=== PATIENT | female | born 1960 | race Caucasian/White ===

== ENCOUNTER 2020-04-08 12:48 | Emergency (ER) | payer MEDICARE, OTHER ==
[2020-04-08] MEDS ORDERED: ONDANSETRON 4 MG/2 ML VIAL IVP STA (13:28)
[2020-04-08] MEDS ORDERED: MORPHINE SULFATE 4 MG/ML SYRINGE IVP STA (13:28)
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
[2020-04-08 14:02] LABS: Basophils # (A) 0.1 k/uL (0-0.2); Basophils % (A) 1 %; Eosinophils # (A) 0.3 k/uL (0-0.7); Eosinophils % (A) 2 %; HGB 14.6 gm/dL (11.4-16.0); Lymphocytes # (A) 1.8 k/uL (1.0-4.8); Lymphocytes % (A) 18 %; MCH 32.1 pg (25.0-35.0); MCV 94.4 fL (80.0-100.0); Monocytes # (A) 0.7 k/uL (0-1.0); Monocytes % (A) 7 %; Neutrophils # (A) 7.5 k/uL (1.3-7.7); Neutrophils % (A) 71 %; Platelet Count 304 k/uL (150-450); RBC 4.56 m/uL (3.80-5.40); RDW 13.1 % (11.5-15.5); WBC 10.5 k/uL (3.8-10.6)
[2020-04-08] MEDS ORDERED: diphenhydrAMINE 50 MG/ML 1 ML VIAL IVP STA (14:04)
[2020-04-08] MEDS ORDERED: methylPREDNISolone SOD SUCCI 125 MG/2 ML VIAL IV STA (14:04)
[2020-04-08] MEDS ORDERED: FAMOTIDINE 20 MG/2 ML VIAL IV STA (14:04)
[2020-04-08 14:11] LABS: ALT 27 U/L (4-34); AST 28 U/L (14-36); African American GFR (CKD) >90 (>60 ml/min/1.73 sqM); Alkaline Phosphatase 117 U/L (38-126); Anion Gap 5 mmol/L; Blood Urea Nitrogen 19 mg/dL (7-17); Calcium 9.5 mg/dL (8.4-10.2); Carbon Dioxide 29 mmol/L (22-30); Chloride 107 mmol/L (98-107); Glucose 101 mg/dL (74-99); Lipase 416 U/L (23-300); Non-African American GFR(CKD) >90 (>60 ml/min/1.73 sqM); Potassium 4.3 mmol/L (3.5-5.1); Sodium 141 mmol/L (137-145); Total Bilirubin 0.4 mg/dL (0.2-1.3); Total Protein 6.9 g/dL (6.3-8.2)
[2020-04-08 14:21] LABS: Appearance,Urine Clear (Clear); Bilirubin,Urine Negative (Negative); Blood,Urine Negative (Negative); Color,Urine Light Yellow; Glucose,Urine (UA) Negative (Negative); Ketones,Urine Negative (Negative); Leukocyte Esterase,Urine Negative (Negative); Nitrite,Urine Negative (Negative); PH, Urine 6.5 (5.0-8.0); Protein,Urine Trace (Negative); Specific Gravity,Urine 1.009 (1.001-1.035); Urobilinogen,Urine <2.0 mg/dL (<2.0)
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
[2020-04-08 15:56] VITALS: BP 143/76; PULSE 62; RESP 62; TEMP 98.6
== END 2020-04-08 15:59 | disposition home or self-care (01) ==
LOC: EC 12:48
DX: Z04.1 Encounter for examination and observation following transport accident (principal); R07.9 Chest pain, unspecified; M79.641 Pain in right hand; I10 Essential (primary) hypertension; E78.5 Hyperlipidemia, unspecified; Z79.899 Other long term (current) drug therapy; Z87.891 Personal history of nicotine dependence; Z85.038 Personal history of other malignant neoplasm of large intestine
CPT/HCPCS: 36415; 93005; 80053; 83690; 84484; 85025; 81003; 73130; 71260; 74177; 99285; 96374; 96375 ×2; J1200; J2930; Q9967

== ENCOUNTER → 2020-08-04 | Outpatient (CLI) | payer MEDICARE ==
[2020-08-04 14:24] VITALS: BP 158/88; PULSE 75; RESP 18; TEMP 97.9; BMI 40.6
--- NOTE | 2020-08-04 14:52 | P.HPBAR ---
Bariatric H&P - History & Physicial H&P Date: 08/04/20 History & Physicial: Visit/CC: initial visit Patient initial contact: Initial weight: Initial weight in pounds: Height: 5 ft 2 in Initial BMI: Last weight: Current weight: 100.698 kg Current weight in pounds: 222.00 Current BMI: 40.6 [place] body weight (based on NIH guidelines): 49.895 kg Excess body weight loss: The patient is a 59 year-old F who presents for Bariatric Assessment. DATE OF SERVICE: 08/04/2020 REASON FOR CONSULTATION: Initial bariatric evaluation. HISTORY OF PRESENT ILLNESS: Quiana Samuels is a 59-year-old female who reports lifelong morbid obesity. She is looking into the sleeve gastrectomy. She comes in with prior abdominal surgery. She reports scar tissue from her colorectal cancer and had a complication of colon fistula. Her highest weight is 250 pounds. She had prior bariatric surgery in the past of adjustable gastric band. She had lost 87 pounds and weight down to 135 to 140 pounds with the band. Her adjustable gastric band was removed in 2019 after developing small bowel obstruction. Since removal of her gastric band, she comes in with moderate weight gain. She is looking weight loss. She has developed lower back pain. She had colon cancer. She reports spinal stenosis as a result of her morbid obesity. She denies personal of family history of esophageal cancer. She denies personal or family history of deep venous thrombosis. She denies easy bleeding. She has hip pain from osteoarthritis. She did have radiation to the pelvis for colon cancer. She had all surgeries in 2019 for colon surgery. She has mild gastroesophageal reflux disease. She has occasional ankle pain and she has neuropathy of the feet and hand. She denies active smoking. Her last smoking was 15+ years ago. She has family history of morbid obesity including her daughter had weight loss surgery. She reports urinary incontinence. She reports having her gallbladder. At height of 5 feet 2 inches, her ideal body weight is 135 pounds. She comes in 222 pounds, body mass index 40.6. Her highest weight is 250 pounds, BMI 45.8. She is 87 pounds overweight. PAST MEDICAL HISTORY: 1. Morbid obesity due to excess calories 2. Body mass index of 45.8, initial 3. Osteoarthritis of the hips. 4. History of colorectal cancer 5. Hypertensive heart disease 6. Hyperlipidemia 7. Neuropathy 8. Depressive disorder PAST SURGICAL HISTORY: 1. Colectomy with ileostomy and reversal 2. Adjustable gastric band with removal, 2018. 3. Tubal ligation 4. Tonsillectomy 5. Hysterectomy HOME MEDICATIONS: Home Medications Medication Instructions Recorded Confirmed Atenolol [Tenormin] 50 mg PO DAILY 04/08/20 09/13/20 Atorvastatin [Lipitor] 20 mg PO DAILY 04/08/20 09/13/20 Biotin 5 mg PO DAILY 04/08/20 09/13/20 Cholecalciferol [Vitamin D3 (25 1,000 unit PO DAILY 04/08/20 09/13/20 Mcg = 1000 Iu)] Diphenox-Atrop 2.5-0.025 mg 1 - 2 tab PO DAILY PRN 04/08/20 09/13/20 [Lomotil] Multivitamins, Thera [Multivitamin 1 tab PO DAILY 04/08/20 09/13/20 (formulary)] Zinc 50 mg PO DAILY 04/08/20 09/13/20 lisinopriL 40 mg PO DAILY 04/08/20 09/13/20 FLUoxetine HCL [PROzac] 10 mg PO DAILY 08/04/20 09/13/20 Previous Rx's Medication Instructions Recorded Omeprazole [PriLOSEC] 40 mg PO DAILY #14 cap 08/30/20 ALLERGIES: Allergies Allergy/AdvReac Type Severity Reaction Status Date / Time No Known Allergies Allergy Verified 09/13/20 12:56 SOCIAL HISTORY: Past tobacco use. FAMILY HISTORY: No family history of ulcerative colitis disease or Crohn's disease. Family history of morbid obesity. No lupus in the family. No reports of stomach or esophageal cancer. REVIEW OF ORGAN SYSTEMS: CONSTITUTIONAL: At height of 5 feet 2 inches, her ideal body weight is 135 pounds. Her highest weight is 250 pounds, BMI 45.8. She is 87 pounds overweight. HEENT: Denies any active troubles with vision or hearing. Denies troubles with swallowing. ENDOCRINE: Denies diabetes. No hypothyroidism. CARDIOVASCULAR: Denies past reports of palpitations or heart attacks or chest pain. Has hypertensive heart disease. RESPIRATORY: Denies daytime somnolence. Denies asthma. GASTROINTESTINAL: Multiple abdominal surgeries due to colorectal cancer as well as chemotherapy and radiation. Has gastroesophageal reflux disease. Chronic diarrhea with fatty food intolerance. GENITOURINARY: Has urinary incontinence. No recent blood in urine MUSCULOSKELETAL: Has lower back pain and joint pain. Has osteoarthritis of the hips. NEURO: No headaches. No seizure disorders. Has neuropathy. PSYCH: Has depression. No suicidal ideation. RHEUMATOLOGIC: No lupus. No rheumatoid arthritis. HEMATOLOGIC: Denies any abnormal bleeding or bruising. Denies history of DVTs. SKIN: No rash. No skin cancer. PHYSICAL EXAM: VITAL SIGNS: Height 5 foot 2 inches, weight 222 pounds. BMI 40.6 Vital Signs Temp 97.9 F 08/04/20 14:15 Pulse 75 08/04/20 14:15 Resp 18 08/04/20 14:15 BP 158/88 08/04/20 14:15 Pulse Ox GENERAL: Well-developed in no acute distress. HEENT: No scleral icterus. Extraocular movements grossly intact. Hears conversational speech. No nasal drainage. NECK: Supple without lymphadenopathy. CHEST: Nonlabored respirations with equal bilateral excursions. CARDIOVASCULAR: Regular rate and regular rhythm. Distal 2+ pulses. ABDOMEN: Obese, soft, nontender, nondistended. MUSCULOSKELETAL: No clubbing, cyanosis. NEURO: No focal or lateralizing signs. Cranial nerves 2 through 12 grossly within normal limits. PSYCH: Appropriate affect. Alert and oriented to person, place and time. SKIN: Good skin turgor. Well perfused. ASSESSMENT: 1. Morbid obesity due to excess calories 2. Body mass index of 45.8, initial 3. Osteoarthritis of the hips. 4. History of colorectal cancer 5. Hypertensive heart disease 6. Hyperlipidemia 7. Neuropathy 8. Depressive disorder 9. Family history morbid obesity 10. Chronic diarrhea PLAN: 1. Surgical options including a band, gastric bypass, sleeve gastrectomy were described in detail. Alternatives such as gastric balloon including duodenal switch were described. She is looking into the sleeve gastrectomy. 2. The [place] bariatric surgical collaborative data and outcomes calculator were described with surgical options. 3. Recommend a bariatric metabolic panel to evaluate for micro- including macronutrient deficiencies. 4. Recommend primary care provider for clearance. 5. Dietary surveillance and counseling was reviewed. Increased protein intake over 65 grams daily advised. 6. Will need cardiac risk assessment. 7. Recommend medical risk assessment. 8. Psych assessment per insurance guidelines. 9. Recommend upper endoscopy. 10. Recommend 12-lead EKG. 11. Recommend esophagram 12. Recommend urine nicotine testing for history of tobacco abuse disorder 13. Recommend urine drug screen 14. Recommend ultrasound of the gallbladder for chronic diarrhea and fatty food intolerance 15. Gastric bypass contraindicated with multiple abdominal surgeries including bowel obstruction for which surgery is high risk. Thank you for this consultation. Past Medical History Past Medical History: Cancer, Hyperlipidemia, Hypertension Additional Past Medical History / Comment(s): colorectal History of Any Multi-Drug Resistant Organisms: None Reported Past Surgical History: Bariatric Surgery, Bowel Resection, Hysterectomy, Tonsillectomy, Tubal Ligation Additional Past Surgical History / Comment(s): ileosotomy and revision. lap band 2004/2005. lap band removed 2018. Past Anesthesia/Blood Transfusion Reactions: No Reported Reaction Past Psychological History: No Psychological Hx Reported Smoking Status: Former smoker Past Alcohol Use History: Occasional Additional Past Alcohol Use History / Comment(s): smoked for 10 years 1.5 ppd. quit smoking 2005. Past Drug Use History: None Reported Surgical - Exam Vital Signs Temp Pulse Resp BP 97.9 F 75 18 158/88 08/04/20 14:15 08/04/20 14:15 08/04/20 14:15 08/04/20 14:15 Results - Labs 08/04/20 15:27 08/04/20 15:27 Bariatric Checklist Checklist: Plan: Checklist: EGD: 1. Hiatal hernia: 2. H. Pylori: HgbA1c: Vitamin D: Smoking: Primary care physician referral: Dr. Perez ([facility]) Psychiatry clearance: Cardiology clearance: Sleep study: Diet journal: VTE risk score: VTE risk level: Rehab needs at discharge:
[2020-08-04 16:17] LABS: HCT 41.1 % (34.0-46.0); HGB 14.1 gm/dL (11.4-16.0); MCH 32.9 pg (25.0-35.0); MCHC 34.4 g/dL (31.0-37.0); MCV 95.7 fL (80.0-100.0); Mean Platelet Volume 7.6; Platelet Count 322 k/uL (150-450); RBC 4.29 m/uL (3.80-5.40); RDW 13.8 % (11.5-15.5); WBC 9.1 k/uL (3.8-10.6)
[2020-08-05 03:44] LABS: Ferritin 64.1 ng/mL (10.0-291.0)
[2020-08-05 04:06] LABS: % Iron Saturation 29.21 (12.00-45.00); ALT 31 U/L (8-44); AST 28 U/L (13-35); African American GFR (CKD) 94.9 (60.0-200.0); Alkaline Phosphatase 120 U/L (41-126); Calcium 9.5 mg/dL (8.7-10.3); Carbon Dioxide 27.4 mmol/L (21.6-31.8); Chloride 107 mmol/L (96-109); Cholesterol 160 mg/dL (0-200); Globulin 2.2 g/dL (1.6-3.3); Glucose 74 mg/dL (70-110); Iron 78 ug/dL (50-170); LDL Cholesterol,Calculated 92.8 mg/dL (0.0-131.0); Non-African American GFR(CKD) 81.8 (60.0-200.0); Phosphorus 3.5 mg/dL (2.4-5.1); Potassium 4.4 mmol/L (3.5-5.5); Sodium 143 mmol/L (135-145); Total Bilirubin 0.6 mg/dL (0.2-1.2); Total Iron Binding Capacity 267 ug/dL (228-460); Total Protein 6.6 g/dL (6.2-8.2)
[2020-08-05 04:35] LABS: Folate, Serum >24.0 ng/mL
[2020-08-05 05:39] LABS: Partial Thromboplastin Time 28.4 sec (23.5-31.0); Prothrombin Time 10.9 sec (9.9-11.9)
[2020-08-05 14:08] LABS: Zinc, Serum 103 ug/dL (60-130)
[2020-08-06 09:37] LABS: Vitamin A 45 ug/dL (38-106)
[2020-08-06 14:04] LABS: Vit B1(Thiamine) 85 ug/L (38-122)
[2020-08-06 15:42] LABS: Anabasine Urine <2.0 ng/mL (<2.0)
[2020-08-08 19:01] LABS: Selenium 139 mcg/L (63-160)
== END ==
LOC: BARWHC3 13:01
PROVIDERS: ATTEND Surgery Plastic and Reconstructive Surgery
DX: E66.01 Morbid (severe) obesity due to excess calories (principal); M16.0 Bilateral primary osteoarthritis of hip; I11.9 Hypertensive heart disease without heart failure; E78.5 Hyperlipidemia, unspecified; F32.9 Major depressive disorder, single episode, unspecified; G62.9 Polyneuropathy, unspecified; Z85.038 Personal history of other malignant neoplasm of large intestine; Z83.49 Family history of other endocrine, nutritional and metabolic diseases; K52.9 Noninfective gastroenteritis and colitis, unspecified; Z68.41 Body mass index [BMI] 40.0-44.9, adult; Z79.899 Other long term (current) drug therapy; Z87.891 Personal history of nicotine dependence
CPT/HCPCS: 84255; 84134; 84425; 80061; 80053; 82607; 82728; 82525; 82746; 83540; 83550; 83735; 84100; 84443; 84590; 84630; 85027; 85610; 85730; 82306; 83970; 83036; 36415; G0480; G0463; 80323; 99203

== ENCOUNTER → 2020-08-27 | Outpatient (CLI) | payer MEDICARE ==
--- NOTE | 2020-08-27 15:22 | US ---
EXAMINATION TYPE: US gallbladder DATE OF EXAM: 08/27/2020 COMPARISON: NONE CLINICAL HISTORY: R10.11 right upper quad pain. EXAM MEASUREMENTS: Liver Length: 13.5 cm Gallbladder Wall: .2 cm CBD: .3 cm Right Kidney: 10.1 x 4.2 x 4.4 cm Pancreas: Tail obscured by overlying bowel gas Liver: Increased attenuation suggestive of fatty infiltration Gallbladder: Gallbladder polyps measuring up to 2 mm. No gallstones, sludge, or pericholecystic flui d. Gallbladder wall is within normal limits. Evidence for sonographic Byrd's sign: No CBD: wnl Right Kidney: No hydronephrosis or masses seen IMPRESSION: 1. Gallbladder polyps measuring up to 2 mm. No cholelithiasis or pericholecystic fluid. Common duct i s within normal limits. Gallbladder wall is within normal limits. 2. Diffuse fatty infiltration of the liver. 3. The tail of the pancreas is obscured due to overlying bowel gas.
== END | disposition home or self-care (01) ==
LOC: RADUSWWP 08:47
PROVIDERS: ATTEND Surgery Plastic and Reconstructive Surgery
DX: K82.4 Cholesterolosis of gallbladder (principal); K76.0 Fatty (change of) liver, not elsewhere classified
CPT/HCPCS: 76705

== ENCOUNTER 2020-08-30 07:38 | Day surgery (SDC) | payer MEDICARE ==
[2020-08-26 11:59] VITALS: BMI 40.2
[~2020-08-30 07:38] MED LIST: LACTATED RINGERS 1,000 ML IV SCH; LIDOCAINE 1% (10MG/ML) FOR IV START INTRADERMA PRN
--- NOTE | 2020-08-30 08:05 | P.GSHP ---
History of Present Illness H&P Date: 08/30/20 CHIEF COMPLAINT: GERD HISTORY OF PRESENT ILLNESS: The patient is a 59-year-old female who presents reports gastroesophageal reflux disease. Upper endoscopy was offered for further evaluation and management. PAST MEDICAL HISTORY: Please see list. PAST SURGICAL HISTORY: Please see list. MEDICATIONS: Please see list. ALLERGIES: Please see list. SOCIAL HISTORY: No illicit drug use FAMILY HISTORY: No reports of Crohn disease or ulcerative colitis. REVIEW OF ORGAN SYSTEMS: CONSTITUTIONAL: No reports of fevers or chills. GI: Denies any blood in stools or constipation. PHYSICAL EXAM: VITAL SIGNS: Stable GENERAL: Well-developed and pleasant in no acute distress. HEENT: No scleral icterus. Extraocular movements grossly intact. Moist buccal mucosa. NECK: Supple without lymphadenopathy. CHEST: Unlabored respirations. Equal bilateral excursions. CARDIOVASCULAR: Regular rate and rhythm. Distal 2+ pulses. ABDOMEN: Soft, nondistended. MUSCULOSKELETAL: No clubbing, cyanosis, or edema. ASSESSMENT: 1. Gastroesophageal reflux disease PLAN: 1. Recommend proceeding with an upper endoscopy Past Medical History Past Medical History: Cancer, GERD/Reflux, Hyperlipidemia, Hypertension Additional Past Medical History / Comment(s): colorectal cancer(radiation and chemo 1998), diarrhea, urinary incontinence History of Any Multi-Drug Resistant Organisms: None Reported Past Surgical History: Bariatric Surgery, Bowel Resection, Hysterectomy, Tonsillectomy, Tubal Ligation Additional Past Surgical History / Comment(s): ileosotomy and revision. lap band 2004. lap band removed 2018. left oophorectomy and salpingectomy, Past Anesthesia/Blood Transfusion Reactions: No Reported Reaction Smoking Status: Former smoker - Past Family History Mother Family Medical History: Cancer Additional Family Medical History / Comment(s): skin Medications and Allergies Home Medications Medication Instructions Recorded Confirmed Type Atenolol [Tenormin] 50 mg PO DAILY 04/08/20 08/26/20 History Atorvastatin [Lipitor] 20 mg PO DAILY 04/08/20 08/26/20 History Biotin 5 mg PO DAILY 04/08/20 08/26/20 History Cholecalciferol [Vitamin D3 (25 1,000 unit PO DAILY 04/08/20 08/26/20 History Mcg = 1000 Iu)] Diphenox-Atrop 2.5-0.025 mg 1 - 2 tab PO DAILY PRN 04/08/20 08/26/20 History [Lomotil] Multivitamins, Thera [Multivitamin 1 tab PO DAILY 04/08/20 08/26/20 History (formulary)] Zinc 50 mg PO DAILY 04/08/20 08/26/20 History lisinopriL 40 mg PO DAILY 04/08/20 08/26/20 History FLUoxetine HCL [PROzac] 10 mg PO DAILY 08/04/20 08/26/20 History Allergies Allergy/AdvReac Type Severity Reaction Status Date / Time No Known Allergies Allergy Verified 08/26/20 11:50
[2020-08-30 08:19] VITALS: TEMP 97.5
[2020-08-30] MEDS ORDERED: PROPOFOL 10 MG/ML 20 ML VIAL IV ONE (08:38)
[2020-08-30] MEDS ORDERED: LIDOCAINE 1% INJ 10MG/ML (20 ML MDV) ONE (08:38)
--- NOTE | 2020-08-30 08:57 | P.PCN ---
Date of Procedure: 08/30/20 Description of Procedure: PREOPERATIVE DIAGNOSIS: Gastroesophageal reflux disease. Morbid obesity. POSTOPERATIVE DIAGNOSIS: Morbid obesity. Gastritis. Gastroesophageal reflux disease. Diaphragmatic hiatal hernia Jessica's esophagus OPERATION: Esophagogastroduodenoscopy with biopsies along antrum and distal esophagus for Jessica's SURGEON: Sherrie Rendon MD ANESTHESIA: MAC. INDICATIONS: The patient is a 59-year-old female who presents with a history of reflux disease. Benefits and risks of the procedure were described. Informed consent was obtained. DESCRIPTION: The patient was brought into the endoscopy suite and laid in the left lateral decubitus position. An Olympus gastroscope was passed along the posterior oropharynx down to the distal esophagus where the squamocolumnar junction was encountered at 34 cm from the incisors. The stomach was entered and no bile reflux was found. Additional findings are listed below. Biopsies with cold forceps were obtained of the antrum. The first through third portion of the duodenum was examined and unremarkable. Retroflexion of the scope confirmed Hill grade 3 lower esophageal valve. The squamocolumnar junction demonstrated LA grade D erosive esophagitis. The stomach was desufflated. The patient tolerated the procedure well. FINDINGS: Squamocolumnar junction 34 cm from the incisors. Diaphragmatic hiatus at 37 cm. Hiatal hernia, 3 cm Hill grade 3 lower esophageal valve. LA grade D erosive esophagitis. No active duodenitis. Chronic gastritis RECOMMENDATIONS: Upper endoscopy as needed. Plan - Discharge Summary New Discharge Prescriptions: New Omeprazole [PriLOSEC] 40 mg PO DAILY #14 cap Continue lisinopriL 40 mg PO DAILY Multivitamins, Thera [Multivitamin (formulary)] 1 tab PO DAILY Diphenox-Atrop 2.5-0.025 mg [Lomotil] 1 - 2 tab PO DAILY PRN PRN Reason: diarhea Cholecalciferol [Vitamin D3 (25 Mcg = 1000 Iu)] 1,000 unit PO DAILY Atorvastatin [Lipitor] 20 mg PO DAILY Atenolol [Tenormin] 50 mg PO DAILY Zinc 50 mg PO DAILY Biotin 5 mg PO DAILY FLUoxetine HCL [PROzac] 10 mg PO DAILY Discharge Medication List Atenolol [Tenormin] 50 mg PO DAILY 04/08/20 [History] Atorvastatin [Lipitor] 20 mg PO DAILY 04/08/20 [History] Biotin 5 mg PO DAILY 04/08/20 [History] Cholecalciferol [Vitamin D3 (25 Mcg = 1000 Iu)] 1,000 unit PO DAILY 04/08/20 [History] Diphenox-Atrop 2.5-0.025 mg [Lomotil] 1 - 2 tab PO DAILY PRN 04/08/20 [History] Multivitamins, Thera [Multivitamin (formulary)] 1 tab PO DAILY 04/08/20 [History] Zinc 50 mg PO DAILY 04/08/20 [History] lisinopriL 40 mg PO DAILY 04/08/20 [History] FLUoxetine HCL [PROzac] 10 mg PO DAILY 08/04/20 [History] Omeprazole [PriLOSEC] 40 mg PO DAILY #14 cap 08/30/20 [Rx] [facility]Ref[facility] [place] [facility] Patient Instructions/Handouts: Jessica Esophagus (DC) Discharge Disposition: HOME SELF-CARE
[2020-08-30 09:15] VITALS: BP 122/73; PULSE 52; RESP 16
== END 2020-08-30 09:40 | disposition home or self-care (01) ==
LOC: ORWHC2ENDO 07:38
PROVIDERS: ATTEND Surgery Plastic and Reconstructive Surgery
DX: K21.9 Gastro-esophageal reflux disease without esophagitis (principal); K44.9 Diaphragmatic hernia without obstruction or gangrene; K22.70 Barrett's esophagus without dysplasia; E66.01 Morbid (severe) obesity due to excess calories; K29.50 Unspecified chronic gastritis without bleeding; E78.5 Hyperlipidemia, unspecified; I10 Essential (primary) hypertension; Z85.038 Personal history of other malignant neoplasm of large intestine; Z92.21 Personal history of antineoplastic chemotherapy; Z92.3 Personal history of irradiation; R32 Unspecified urinary incontinence; Z87.891 Personal history of nicotine dependence; Z98.84 Bariatric surgery status; Z79.899 Other long term (current) drug therapy
CPT/HCPCS: 88305; 43239; J2001; J2704

== ENCOUNTER → 2020-09-08 | Outpatient (CLI) | payer MEDICARE ==
[2020-09-08 15:11] VITALS: BP 152/81; PULSE 71; RESP 16; TEMP 98.6; BMI 41.1
--- NOTE | 2020-09-08 15:35 | P.PN ---
Subjective Progress Note Date: 09/08/20 DATE OF SERVICE: 09/08/2020 CHIEF COMPLAINT: Morbid obesity HISTORY OF PRESENT ILLNESS: Quiana Samuels is a 59-year-old female with morbid obesity. She is looking into the sleeve gastrectomy. As a result of her morbid obesity, she has developed hypertensive heart disease, osteoarthritis of the hips, and hyperlipidemia. 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 She had prior bariatric surgery in the past of adjustable gastric band. She completed upper endoscopy and psychological assessment. She is completing medical supervised weight loss. She present for surgical options for weight loss. At height of 5 feet 2 inches, her ideal body weight is 135 pounds. Her highest weight is 250 pounds, BMI 45.8. She comes in 224 pounds from 222 pounds. She has gained 2 pounds in 1 month. She is 90 pounds overweight. PAST MEDICAL HISTORY: 1. Morbid obesity due to excess calories 2. Body mass index of 45.8, initial 3. Osteoarthritis of the hips. 4. History of colorectal cancer 5. Hypertensive heart disease 6. Hyperlipidemia 7. Neuropathy 8. Depressive disorder PAST SURGICAL HISTORY: 1. Colectomy with ileostomy and reversal 2. Adjustable gastric band with removal, 2018. 3. Tubal ligation 4. Tonsillectomy 5. Hysterectomy HOME MEDICATIONS: Home Medications Medication Instructions Recorded Confirmed Atenolol [Tenormin] 50 mg PO DAILY 04/08/20 09/13/20 Atorvastatin [Lipitor] 20 mg PO DAILY 04/08/20 09/13/20 Biotin 5 mg PO DAILY 04/08/20 09/13/20 Cholecalciferol [Vitamin D3 (25 1,000 unit PO DAILY 04/08/20 09/13/20 Mcg = 1000 Iu)] Diphenox-Atrop 2.5-0.025 mg 1 - 2 tab PO DAILY PRN 04/08/20 09/13/20 [Lomotil] Multivitamins, Thera [Multivitamin 1 tab PO DAILY 04/08/20 09/13/20 (formulary)] Zinc 50 mg PO DAILY 04/08/20 09/13/20 lisinopriL 40 mg PO DAILY 04/08/20 09/13/20 FLUoxetine HCL [PROzac] 10 mg PO DAILY 08/04/20 09/13/20 Previous Rx's Medication Instructions Recorded Omeprazole [PriLOSEC] 40 mg PO DAILY #14 cap 08/30/20 ALLERGIES: Allergies Allergy/AdvReac Type Severity Reaction Status Date / Time No Known Allergies Allergy Verified 09/13/20 12:56 SOCIAL HISTORY: Past tobacco use. FAMILY HISTORY: No family history of ulcerative colitis disease or Crohn's disease. Family history of morbid obesity. No lupus in the family. No reports of stomach or esophageal cancer. REVIEW OF ORGAN SYSTEMS: CONSTITUTIONAL: At height of 5 feet 2 inches, her ideal body weight is 135 pounds. Her highest weight is 250 pounds, BMI 45.8. She is 87 pounds overweight. HEENT: Denies any active troubles with vision or hearing. Denies troubles with swallowing. ENDOCRINE: Denies diabetes. No hypothyroidism. CARDIOVASCULAR: Denies past reports of palpitations or heart attacks or chest pain. Has hypertensive heart disease. RESPIRATORY: Denies daytime somnolence. Denies asthma. GASTROINTESTINAL: Multiple abdominal surgeries due to colorectal cancer as well as chemotherapy and radiation. Has gastroesophageal reflux disease. Chronic diarrhea with fatty food intolerance. GENITOURINARY: Has urinary incontinence. No recent blood in urine MUSCULOSKELETAL: Has lower back pain and joint pain. Has osteoarthritis of the hips. NEURO: No headaches. No seizure disorders. Has neuropathy. PSYCH: Has depression. No suicidal ideation. RHEUMATOLOGIC: No lupus. No rheumatoid arthritis. HEMATOLOGIC: Denies any abnormal bleeding or bruising. Denies history of DVTs. SKIN: No rash. No skin cancer. PHYSICAL EXAM: VITAL SIGNS: Height 5 foot 2 inches, weight 224 pounds. BMI 41.2 Vital Signs Temp 98.6 F 09/08/20 15:08 Pulse 71 09/08/20 15:08 Resp 16 09/08/20 15:08 BP 152/81 09/08/20 15:08 Pulse Ox GENERAL: Well-developed in no acute distress. HEENT: No scleral icterus. Extraocular movements grossly intact. Hears conversational speech. No nasal drainage. NECK: Supple without lymphadenopathy. CHEST: Nonlabored respirations with equal bilateral excursions. CARDIOVASCULAR: Regular rate and regular rhythm. Distal 2+ pulses. ABDOMEN: Obese, soft, nontender, nondistended. MUSCULOSKELETAL: No clubbing, cyanosis. NEURO: No focal or lateralizing signs. Cranial nerves 2 through 12 grossly within normal limits. PSYCH: Appropriate affect. Alert and oriented to person, place and time. SKIN: Good skin turgor. Well perfused. LABS: Reviewed. No vitamin deficiencies. PTH elevated. Urine nicotine negative. EKG: Normal sinus rhythm. REPORTS: Psych assessment reviewed without contra-indications to bariatric surgery. IMAGES: Ultrasound of gallbladder independently reviewed. Small gallstone identified. This is my independent interpretation EGD FINDINGS: Squamocolumnar junction 34 cm from the incisors. Diaphragmatic hiatus at 37 cm. Hiatal hernia, 3 cm Hill grade 3 lower esophageal valve. LA grade D erosive esophagitis. No active duodenitis. Chronic gastritis Final Pathologic Diagnosis A. STOMACH, ANTRUM, BIOPSY: Mild chronic gastritis. No Helicobacter organisms seen on H+E staining. B. ESOPHAGUS, BIOPSY: Junctional esophageal mucosa with active inflammation involving glandular component. Negative for Barretts esophagus or features of eosinophilic esophagitis. ASSESSMENT: 1. Morbid obesity due to excess calories 2. Body mass index of 45.8, initial to 41.2 3. Osteoarthritis of the hips. 4. History of colorectal cancer 5. Hypertensive heart disease 6. Hyperlipidemia 7. Neuropathy 8. Depressive disorder 9. Family history morbid obesity 10. Chronic diarrhea 11. Hiatal hernia 12. Hyperparathyroidism 13. Gallstone PLAN: 1. Bariatric options between a sleeve, band and a Hailey-en-Y gastric bypass were reviewed in detail. The patient elected for a sleeve gastrectomy. Robotic assisted approach described. 2. The [place] [facility] Data was also reviewed with benefits and risks as described. 3. An 8 page second-generation bariatric consent form was reviewed in detail including potential of bleeding, infection, leaks, adequate weight loss, nutritional deficiencies which the patient demonstrated understanding of the risks. 4. A 2 week high-protein low caloric 800 kcal diet described to address hepatomegaly. 5. Preoperative labs including complete metabolic panel and CBC with type and screen recommended. 6. DVT prophylaxis per [place] [facility]. 7. Antibiotic prophylaxis. 8. Inpatient hospitalization anticipated for more than 2 nights. 9. All questions and concerns were addressed with the patient. 10. She is at elevated risk for perioperative complications due to multiple abdominal surgeries including prior bariatric procedure. Possibility of inability to complete her procedure, leaks, and stricture reviewed. 11. Overall, patient has expressed understanding of bariatric care including postoperative diet and commitment of lifestyle. Patient should benefit from surgical intervention for correction of her morbid obesity. 12. Recommend cholecystectomy for gallstone/gallbladder polyp. Objective - Vital Signs Vital signs: Vital Signs Temp 98.6 F 09/08/20 15:08 Pulse 71 09/08/20 15:08 Resp 16 09/08/20 15:08 BP 152/81 09/08/20 15:08 Pulse Ox Intake & Output 09/07/20 09/08/20 09/08/20 18:59 06:59 18:59 Weight 102.058 kg
== END ==
LOC: BARWHC3 14:13
PROVIDERS: ATTEND Surgery Plastic and Reconstructive Surgery
DX: E66.01 Morbid (severe) obesity due to excess calories (principal); E21.3 Hyperparathyroidism, unspecified; E78.5 Hyperlipidemia, unspecified; F32.9 Major depressive disorder, single episode, unspecified; G62.9 Polyneuropathy, unspecified; I11.9 Hypertensive heart disease without heart failure; K44.9 Diaphragmatic hernia without obstruction or gangrene; M16.0 Bilateral primary osteoarthritis of hip; R19.7 Diarrhea, unspecified; K80.80 Other cholelithiasis without obstruction; Z83.49 Family history of other endocrine, nutritional and metabolic diseases; Z85.038 Personal history of other malignant neoplasm of large intestine; Z87.891 Personal history of nicotine dependence; Z79.899 Other long term (current) drug therapy; Z68.42 Body mass index [BMI] 45.0-49.9, adult
CPT/HCPCS: 99211

== ENCOUNTER 2020-12-06 09:00 | Inpatient (IN) | payer MEDICARE ==
[2021-02-14] MEDS ORDERED: HYDROmorphone 0.5 MG/0.5 ML SYRINGE IVP PRN (06:13)
[2021-02-14] MEDS ORDERED: ONDANSETRON 4 MG/2 ML VIAL IVP ONE (06:13)
[2021-02-14] MEDS ORDERED: DEXAMETHASONE SOD PHOSPHATE 4 MG/ML 1 ML VIAL IV ONE (06:13)
[2021-02-14] MEDS ORDERED: ENOXAPARIN 40 MG/0.4 ML SYRINGE SQ PRN (07:00)
[2021-02-14] MEDS ORDERED: CHLORHEXIDINE GLUCONATE 15 ML CUP MUCOUS MEM PRN (07:00)
[2021-02-14] MEDS ORDERED: PANTOPRAZOLE 40 MG/10 ML VIAL IVP PRN (07:00)
[2021-02-14] MEDS ORDERED: ACETAMINOPHEN TAB 500 MG TAB PO STA (07:05)
[2021-02-14] MEDS ORDERED: GABAPENTIN 300 MG CAP PO STA (07:05)
[2021-02-14] MEDS ORDERED: SCOPOLAMINE 1.5MG/72HR PATCH TRANSDERM STA (07:05)
--- NOTE | 2021-02-14 07:05 | P.GSHP ---
History of Present Illness H&P Date: 02/14/21 CHIEF COMPLAINT: Morbid obesity HISTORY OF PRESENT ILLNESS: Quiana Samuels is a 59-year-old female with morbid obesity. She is looking into the sleeve gastrectomy. As a result of her morbid obesity, she has developed hypertensive heart disease, osteoarthritis of the hips, and hyperlipidemia. She had prior bariatric surgery in the past of adjustable gastric band. At height of 5 feet 2 inches, her ideal body weight is 135 pounds. Her highest weight is 250 pounds, BMI 45.8. She comes was 224 pounds. She is 90 pounds overweight. PAST MEDICAL HISTORY: 1. Morbid obesity due to excess calories 2. Body mass index of 45.8, initial 3. Osteoarthritis of the hips. 4. History of colorectal cancer 5. Hypertensive heart disease 6. Hyperlipidemia 7. Neuropathy 8. Depressive disorder PAST SURGICAL HISTORY: 1. Colectomy with ileostomy and reversal 2. Adjustable gastric band with removal, 2019. 3. Tubal ligation 4. Tonsillectomy 5. Hysterectomy HOME MEDICATIONS: Home Medications Medication Instructions Recorded Confirmed Atenolol [Tenormin] 50 mg PO DAILY 04/08/20 09/13/20 Atorvastatin [Lipitor] 20 mg PO DAILY 04/08/20 09/13/20 Biotin 5 mg PO DAILY 04/08/20 09/13/20 Cholecalciferol [Vitamin D3 (25 1,000 unit PO DAILY 04/08/20 09/13/20 Mcg = 1000 Iu)] Diphenox-Atrop 2.5-0.025 mg 1 - 2 tab PO DAILY PRN 04/08/20 09/13/20 [Lomotil] Multivitamins, Thera [Multivitamin 1 tab PO DAILY 04/08/20 09/13/20 (formulary)] Zinc 50 mg PO DAILY 04/08/20 09/13/20 lisinopriL 40 mg PO DAILY 04/08/20 09/13/20 FLUoxetine HCL [PROzac] 10 mg PO DAILY 08/04/20 09/13/20 Previous Rx's Medication Instructions Recorded Omeprazole [PriLOSEC] 40 mg PO DAILY #14 cap 08/30/20 ALLERGIES: Allergies Allergy/AdvReac Type Severity Reaction Status Date / Time No Known Allergies Allergy Verified 09/13/20 12:56 SOCIAL HISTORY: Past tobacco use. FAMILY HISTORY: No family history of ulcerative colitis disease or Crohn's disease. Family history of morbid obesity. No lupus in the family. No reports of stomach or esophageal cancer. REVIEW OF ORGAN SYSTEMS: CONSTITUTIONAL: At height of 5 feet 2 inches, her ideal body weight is 135 pounds. Her highest weight is 250 pounds, BMI 45.8. She is 87 pounds overweight. HEENT: Denies any active troubles with vision or hearing. Denies troubles with swallowing. ENDOCRINE: Denies diabetes. No hypothyroidism. CARDIOVASCULAR: Denies past reports of palpitations or heart attacks or chest pain. Has hypertensive heart disease. RESPIRATORY: Denies daytime somnolence. Denies asthma. GASTROINTESTINAL: Multiple abdominal surgeries due to colorectal cancer as well as chemotherapy and radiation. Has gastroesophageal reflux disease. Chronic diarrhea with fatty food intolerance. GENITOURINARY: Has urinary incontinence. No recent blood in urine MUSCULOSKELETAL: Has lower back pain and joint pain. Has osteoarthritis of the hips. NEURO: No headaches. No seizure disorders. Has neuropathy. PSYCH: Has depression. No suicidal ideation. RHEUMATOLOGIC: No lupus. No rheumatoid arthritis. HEMATOLOGIC: Denies any abnormal bleeding or bruising. Denies history of DVTs. SKIN: No rash. No skin cancer. PHYSICAL EXAM: VITAL SIGNS: Height 5 foot 2 inches, weight 224 pounds. BMI 41.2 GENERAL: Well-developed in no acute distress. HEENT: No scleral icterus. Extraocular movements grossly intact. Hears conversational speech. No nasal drainage. NECK: Supple without lymphadenopathy. CHEST: Nonlabored respirations with equal bilateral excursions. CARDIOVASCULAR: Regular rate and regular rhythm. Distal 2+ pulses. ABDOMEN: Obese, soft, nontender, nondistended. MUSCULOSKELETAL: No clubbing, cyanosis. NEURO: No focal or lateralizing signs. Cranial nerves 2 through 12 grossly within normal limits. PSYCH: Appropriate affect. Alert and oriented to person, place and time. SKIN: Good skin turgor. Well perfused. ASSESSMENT: 1. Morbid obesity due to excess calories 2. Body mass index of 45.8, initial to 41.2 3. Osteoarthritis of the hips. 4. History of colorectal cancer 5. Hypertensive heart disease 6. Hyperlipidemia 7. Neuropathy 8. Depressive disorder 9. Family history morbid obesity 10. Chronic diarrhea 11. Hiatal hernia 12. Hyperparathyroidism 13. Gallstone PLAN: 1. Bariatric options between a sleeve, band and a Hailey-en-Y gastric bypass were reviewed in detail. The patient elected for a sleeve gastrectomy. Robotic assisted approach described. 2. An 8 page second-generation bariatric consent form was reviewed in detail including potential of bleeding, infection, leaks, adequate weight loss, nutritional deficiencies which the patient demonstrated understanding of the risks. 3. A 2 week high-protein low caloric 800 kcal diet described to address hepatomegaly. 4. DVT prophylaxis per [place] [facility]. 5. Antibiotic prophylaxis. 6. Inpatient hospitalization anticipated for more than 2 nights. 7. She is at elevated risk for perioperative complications due to multiple abdominal surgeries including prior bariatric procedure. Possibility of inability to complete her procedure, leaks, and stricture reviewed. Past Medical History Past Medical History: Cancer, GERD/Reflux, Hyperlipidemia, Hypertension Additional Past Medical History / Comment(s): colorectal cancer(radiation and chemo 1998), diarrhea, urinary incontinence History of Any Multi-Drug Resistant Organisms: None Reported Past Surgical History: Bariatric Surgery, Bowel Resection, Hysterectomy, Tonsillectomy, Tubal Ligation Additional Past Surgical History / Comment(s): ileosotomy and revision, THEN REVERSAL. ALSO HAD FISUTLA REPAIR. lap band 2004. lap band removed 2019. left oophorectomy and salpingectomy, EGD, COLONOSCOPY, Past Anesthesia/Blood Transfusion Reactions: No Reported Reaction Smoking Status: Former smoker - Past Family History Mother Family Medical History: Cancer Additional Family Medical History / Comment(s): skin Medications and Allergies Home Medications Medication Instructions Recorded Confirmed Type Atenolol [Tenormin] 50 mg PO DAILY 04/08/20 02/10/21 History Atorvastatin [Lipitor] 20 mg PO DAILY 04/08/20 02/10/21 History Biotin 5 mg PO DAILY 04/08/20 02/10/21 History Cholecalciferol [Vitamin D3 (25 1,000 unit PO DAILY 04/08/20 02/10/21 History Mcg = 1000 Iu)] Diphenox-Atrop 2.5-0.025 mg 1 - 2 tab PO DAILY PRN 04/08/20 02/10/21 History [Lomotil] Multivitamins, Thera [Multivitamin 1 tab PO DAILY 04/08/20 02/10/21 History (formulary)] Zinc 50 mg PO DAILY 04/08/20 02/10/21 History lisinopriL 40 mg PO DAILY 04/08/20 02/10/21 History FLUoxetine HCL [PROzac] 10 mg PO DAILY 08/04/20 02/10/21 History Omeprazole [PriLOSEC] 40 mg PO DAILY #14 cap 08/30/20 02/10/21 Rx Allergies Allergy/AdvReac Type Severity Reaction Status Date / Time No Known Allergies Allergy Verified 02/10/21 09:25
[2021-02-14] MEDS: LACTATED RINGERS 1,000 ML IV SCH (10:42)
[2021-02-14] MEDS ORDERED: ROCURONIUM 10 MG/ML (5 ML VIAL) IV ONE (11:59)
[2021-02-14] MEDS ORDERED: SUCCINYLCHOLINE CHLORIDE 100 MG/5 ML SYR IV ONE (11:59)
[2021-02-14] MEDS ORDERED: fentaNYL (PF) 50 MCG/ML 2 ML AMP ONE (11:59)
[2021-02-14] MEDS ORDERED: NEOSTIGMINE 1 MG/ML 10 ML VIAL ONE (11:59)
[2021-02-14] MEDS ORDERED: PROPOFOL 10 MG/ML 20 ML VIAL IV ONE (11:59)
[2021-02-14] MEDS ORDERED: GLYCOPYRROLATE 0.2 MG/ML 2 ML VIAL ONE (11:59)
[2021-02-14] MEDS ORDERED: LIDOCAINE 1% INJ 10MG/ML (20 ML MDV) ONE (11:59)
[2021-02-14] MEDS ORDERED: MIDAZOLAM 2 MG/2 ML VIAL ONE (11:59)
[2021-02-14] MEDS ORDERED: HYDROmorphone (PF) 1 MG/ML ONE (11:59)
[2021-02-14] MEDS ORDERED: BUPIVACAIN-EPI 0.25%-1:200,000 30 ML VIAL SQ ONE (12:05)
[2021-02-14] MEDS ORDERED: LACTATED RINGERS 1,000 ML IV ONE (13:37)
[2021-02-14] MEDS ORDERED: diphenhydrAMINE 50 MG/ML 1 ML VIAL IVP PRN (14:30)
[2021-02-14] MEDS ORDERED: NALOXONE 0.4 MG/ML 1 ML VIAL IV PRN (14:30)
[2021-02-14] MEDS ORDERED: DEXAMETHASONE SOD PHOSPHATE 10 MG/ML 1 ML VIAL IVP PRN (14:33)
[2021-02-14] MEDS ORDERED: SODIUM CHLORIDE 0.9% 1,000 ML IV ONE (14:33)
[2021-02-14] MEDS: HYDROmorphone 1 MG/ML 1 ML SYRINGE IVP PRN ×2 (16:36→22:14)
[2021-02-14] MEDS: DEXAMETHASONE SOD PHOSPHATE 4 MG/ML 1 ML VIAL IVP SCH ×2 (17:49→23:11)
[2021-02-14] MEDS: 0.9% NACL WITH KCL 20 MEQ/L 1,000 ML IV SCH ×2 (17:49→23:12)
[2021-02-14] MEDS: HYOSCYAMINE ORAL DROPS 1.875 MG/15 ML BOTTLE PO SCH ×2 (17:50→23:12)
[2021-02-14] MEDS: SIMETHICONE 40 MG/0.6 ML DROPS 2,000 MG/30 ML BOTTLE PO SCH ×2 (17:50→23:14)
--- NOTE | 2021-02-14 20:32 | P.OP ---
Date of Procedure: 02/14/21 Description of Procedure: SURGEON: ARA XIE MD PREOPERATIVE DIAGNOSES: 1. Morbid obesity due to excess calories 2. Body mass index of 45.8 3. Osteoarthritis of the hips. 4. History of colorectal cancer 5. Hypertensive heart disease 6. Hyperlipidemia 7. Neuropathy 8. Depressive disorder 9. Family history morbid obesity 10. Chronic diarrhea 11. Hiatal hernia 12. Hyperparathyroidism 13. History of colectomy with ileostomy reversal 14. History of hysterectomy 15. History of adjustable gastric band removal POSTOPERATIVE DIAGNOSES: 1. Morbid obesity due to excess calories 2. Body mass index of 45.8 3. Osteoarthritis of the hips. 4. History of colorectal cancer 5. Hypertensive heart disease 6. Hyperlipidemia 7. Neuropathy 8. Depressive disorder 9. Family history morbid obesity 10. Chronic diarrhea 11. Hiatal hernia 12. Hyperparathyroidism 13. History of colectomy with ileostomy reversal 14. History of hysterectomy 15. History of adjustable gastric band removal 16. Severe peritoneal adhesions OPERATION: 1. Robotic assisted daVinci Xi laparoscopic sleeve gastrectomy with 40-Romansh bougie, 3 port technique. 2. Robotic assisted daVinci Xi laparoscopic lysis of adhesions over 30 minutes 3. Intraoperative esophagogastroduodenoscopy. ANESTHESIA: Gen. local anesthetic ESTIMATED BLOOD LOSS: 5 mL SPECIMENS REMOVED: Sleeve gastrectomy COMPLICATIONS: None. FINDINGS: 1. Negative intraoperative esophagogastrojejunoscopy leak test. 2. No hepatomegaly and no large hiatus hernia. 3. Total of 6 staplers used including 3 - 60 mm green robot tito and 3 - 60 mm blue robot loads used to create the gastric sleeve. 4. Sleeve gastrectomy, 19 cm x 5 cm 5. Posterior gastric prolapse due to prior adjustable gastric band procedure 6. Severe intra-abdominal pelvic adhesions 7. Moderate to severe perigastric adhesions due to prior adjustable gastric band INDICATIONS: Quiana Samuels is a 60-year-old female with morbid obesity. She is looking into the sleeve gastrectomy. As a result of her morbid obesity, she has developed hypertensive heart disease, osteoarthritis of the hips, and hyperlipidemia. She had prior bariatric surgery in the past of adjustable gastric band. At height of 5 feet 2 inches, her ideal body weight is 135 pounds. Her highest weight is 250 pounds, BMI 45.8. She comes in 210 pounds. She was 90 pounds overweight. All surgical options for morbid obesity had been described using the [place] bariatric surgery collaborative comorbidity resolution including complication risk score. A second-generation bariatric consent form was described in detail including the possibility of protein malnutrition, leaks, gastric stricture, venous thrombosis, gastroesophageal reflux disease, need for further surgery for which she demonstrated understanding. Additionally, patient is at elevated risk due to multiple abdominal procedures including prior adjustable gastric band for which the risks of leaks and complications are higher. Benefits and risks of the procedure were described at length. Informed consent was obtained. DESCRIPTION: The patient was brought into the operating room theater. Preoperatively she had received Lovenox subcutaneously for DVT prophylaxis. Additionally she had Peridex oral solution as an oral decontaminant. After general induction, the abdomen was prepped and draped in standard sterile fashion. An Ioban draping was placed along the abdomen. A robotic da Margie Xi system was prepped and primed. At 12 cm from the xiphoid, proposed port sites were marked with indelible marker along the anterior axillary line bilaterally, mid axillary line bilaterally with each ports were marked 10 cm from each other. The robotic stapler port was marked for the right midclavicular line. A 5 mm 0 degrees laparoscopic trocar entry was performed along the left upper quadrant. The abdomen was insufflated to 15 mmHg pressure was tolerated well. Diagnostic laparoscopy demonstrated no injury to bowel, viscera, or mesentery. Severe midline including pelvic as well as upper abdominal adhesions were identified. Interloop adhesions were found. Small bowel was adhered to the abdominal wall. Trochars were adjusted accordingly. The liver edge was sharp consistent with 2 week low-carb high-protein diet. A 8 mm port was placed along the left upper abdominal wall after exchanging the 5 mm port. A separate 8 mm port was placed along the left lateral abdominal wall. Please note that the ports were placed at least 20 cm away from the target anatomy. Care was taken to check each robotic arms were safely away from collision with the bed or the patient. At the epigastrium, a medium sized Vasu liver retractor was placed under direct visualization with the Iron Magazine Filler placed under the right shoulder of the patient. Due to severe adhesions on the right upper quadrant, trocar was abandoned for a 3 port technique. The camera 8-mm port was maintained along the left upper quadrant. The patient was repositioned in reverse Trendelenburg position at 21-degrees after lowering the bed. The robot was docked along the right side of the patient. Using a vessel sealer for arm 3, including grasper for arm 1, the robotic system was docked and primed as described. Instruments were interchanged by the water quality assistant for stapler loads. The camera was placed at 30-degrees down. I had sat at the console. Moderate adhesions of the epigastrium were addressed using vessel sealer. Additionally lesser curvature adhesions from the adjustable gastric band including anti-prolapse stitch were identified and divided. Posterior gastric prolapse was found with adhesions divided. Extensive lysis of adhesions over 30 minutes was performed. Due to posterior gastric prolapse and compromised thin tissue of the gastric pouch, the gastric pouch was not resected. The pylorus was identified and 6 cm proximally along the greater curvature of the stomach, the short gastrics were mobilized upwards to the angle of His using a vessel sealer. Hemostasis was excellent during this portion of the procedure. Next, the upper pole of the stomach was adherent to the left tor, which was gently dissected free using atraumatic grasper. I went to the head of the bed and placed 40-Romansh blunt bougie into the stomach. The bougie was readjusted by the nurse clerical methods analyst. Robotic stapler green load 60 mm 3 followed by blue 60 mm x 3 loads were used to create the sleeve. Initial firing was across the antrum of the stomach towards the angle of His. The staple line was linear without corkscrewing. The space from the angularis incisura of the sleeve was approximately 4 cm. I then went to the head of the bed to perform the intraoperative esophagogastroduodenoscopy leak test. The bougie was withdrawn. The upper pole of the stomach was bathed using normal saline solution. The scope was withdrawn with careful inspection along the staple line for which no leaks were found along the entire length. Additionally,the sleeve was completely hemostatic without any encroachment along the angularis incisura. Its topology was a soft "J". No stricture was encountered upon placement of the scope. The GI tract was desufflated. The patient tolerated this portion of the procedure well. The scope was completely withdrawn. The robot was undocked. I then rescrubbed into case, whereby the irrigation fluid was aspirated from the abdominal cavity. Tisseel fibrin sealant was placed along the entire staple length. Once dried the Vasu liver retractor was removed. Attention was now brought to removal of the specimen. The distal end of the sleeve gastrectomy specimen was brought out through the 12 mm port at the left upper quadrant. The specimen was gently removed en total. No contamination had occurred during this process. All instruments and pneumoperitoneum including irrigation fluid was removed from the abdominal cavity. The 12 mm port site was closed using 0-Vicryl and Alverto Griffin and irrigated with diluted hydrogen peroxide. The final incisions were closed using subcuticular interrupted suture of 4-0 Monocryl. Exofin was applied to the skin once the skin had been cleansed. OptiFoam dressing was placed along the stomach extraction site. The sleeve specimen was measured and checked also for leaks which none were found. At the end of the procedure, needle, sponge, and instrument count was verified correct by the surgical oncologist. The patient was taken to the postanesthesia care unit in stable condition. She had tolerated the procedure well. Intraoperative films and findings were reviewed with the patient's family.
[2021-02-14] MEDS: ALBUTEROL NEBULIZED 2.5 MG/3 ML INHALATION SCH (21:13)
[2021-02-15] MEDS: DEXAMETHASONE SOD PHOSPHATE 4 MG/ML 1 ML VIAL IVP SCH ×2 (05:09→11:35)
[2021-02-15] MEDS: SIMETHICONE 40 MG/0.6 ML DROPS 2,000 MG/30 ML BOTTLE PO SCH ×2 (05:10→11:36)
[2021-02-15] MEDS: HYOSCYAMINE ORAL DROPS 1.875 MG/15 ML BOTTLE PO SCH ×2 (05:10→11:36)
[2021-02-15] MEDS: LACTATED RINGERS 1,000 ML IV SCH (06:35)
[2021-02-15] MEDS: ALBUTEROL NEBULIZED 2.5 MG/3 ML INHALATION SCH ×3 (07:30→16:20)
[2021-02-15] MEDS: HYDROmorphone 1 MG/ML 1 ML SYRINGE IVP PRN (07:34)
[2021-02-15] MEDS ORDERED: 1: THIAMINE 100 MG, FOLIC ACID 1 MG in 0.9% NACL WITH KCL 20 MEQ/L 1,000 ML 2: 0.9% NAC IVPB SCH (08:00)
[2021-02-15] MEDS: 0.9% NACL WITH KCL 20 MEQ/L 1,000 ML IV SCH (08:04)
[2021-02-15 08:12] VITALS: RESP 18
[2021-02-15] MEDS ORDERED: ENOXAPARIN 40 MG/0.4 ML SYRINGE SQ SCH (09:00)
[2021-02-15] MEDS ORDERED: atenoloL 50 MG TAB PO SCH (09:00)
[2021-02-15] MEDS ORDERED: MULTIVITAMINS, THERA LIQUID 237 ML BOTTLE PO SCH (09:00)
[2021-02-15] MEDS ORDERED: lisinopriL 20 MG TAB PO SCH (09:00)
[2021-02-15] MEDS ORDERED: PANTOPRAZOLE 40 MG/10 ML VIAL IV SCH (09:00)
[2021-02-15 09:15] LABS: Basophils # (A) 0.01 X 10*3/uL (0.00-0.10); Basophils % (A) 0.1 %; Eosinophils # (A) 0 X 10*3/uL (0.04-0.35); Eosinophils % (A) 0 %; HCT 41.2 % (37.2-46.3); HGB 12.9 g/dL (12.0-15.0); Lymphocytes # (A) 0.84 X 10*3/uL (0.90-5.00); Lymphocytes % (A) 6.4 %; MCH 30.8 pg (27.0-32.0); MCHC 31.3 g/dL (32.0-37.0); MCV 98.3 fL (80.0-97.0); Mean Platelet Volume 11.4 fL (9.5-12.2); Monocytes # (A) 0.45 X 10*3/uL (0.20-1.00); Monocytes % (A) 3.4 %; Neutrophils # (A) 11.78 X 10*3/uL (1.80-7.70); Neutrophils % (A) 89.7 %; Platelet Count 261 X 10*3/uL (140-440); RBC 4.19 X 10*6/uL (4.10-5.20); RDW 14.1 % (11.5-14.5); WBC 13.13 X 10*3/uL (4.50-10.00)
--- NOTE | 2021-02-15 09:29 | FL ---
EXAMINATION TYPE: FL UGI DATE OF EXAM: 02/15/2021 CLINICAL HISTORY: Status post gastric sleeve Contrast: Omnipaque 350 50 mL The patient ingested contrast without difficulty. Noted are postsurgical changes of gastric sleeve. There is no evidence for leak. There is mild delay in esophagogastric transit however contrast does enter the distal stomach and duodenum. Noted during the study was reflux of contrast from the stomach into the esophagus. Contrast is noted within the duodenum. IMPRESSION: Post-surgical change of gastric sleeve without evidence for leak. There is mild delay in esophagogastric transit with mild edema noted at the staple line.
[2021-02-15 10:03] LABS: African American GFR (CKD) 94.2 (60.0-200.0); Anion Gap 11.9 mmol/L (4.00-12.00); Blood Urea Nitrogen 17.7 mg/dL (9.0-27.0); Calcium 9.1 mg/dL (8.7-10.3); Carbon Dioxide 22.1 mmol/L (21.6-31.8); Non-African American GFR(CKD) 81.3 (60.0-200.0); Phosphorus 4.1 mg/dL (2.4-5.1)
[2021-02-15 10:43] VITALS: BMI 38.4
--- NOTE | 2021-02-15 12:55 | P.DS ---
Providers Date of admission: 02/14/21 09:32 Expected date of discharge: 02/15/21 Attending physician: Sherrie Rendon Primary care physician: Sue Montana Hospital Course: Postoperative Diagnosis: 1. Morbid obesity due to excess calories 2. Body mass index of 45.8 3. Osteoarthritis of the hips 4. History of colorectal cancer 5. Hypertensive heart disease 6. Hyperlipidemia 9. Neuropathy 8. Depressive disorder 9. Family history morbid obesity 10. Chronic diarrhea 11. Hiatal hernia 12. Hyperparathyroidism 13. History of colectomy with ileostomy reversal 14. History of hysterectomy 15. History of adjustable gastric band removal 16. Severe peritoneal adhesions Hospital Course: This is a 60-year-old female with morbid obesity. Patient came in for sleeve gastrectomy. Patient has developed hypertensive heart disease, osteoarthritis of the hips and hyperlipidemia related to her morbid obesity. She had prior bariatric surgery in the past of an adjustable gastric band. She is postop day #1 for robotic-assisted da Margie Xi laparoscopic sleeve gastrectomy with a 40- Togolese bougie, 3 port technique, robotic-assisted da Margie laparoscopic lysis of adhesions as well as the intraoperative EGD. Patient states pain is well- managed. Denies any nausea or vomiting. She underwent GI series that showed postsurgical changes gastric sleeve without evidence for leak. There is mild delay in esophogastric transit with mild edema noted at the staple line. She was advanced to a bariatric clear liquid diet. She's been up and ambulating. Patient denies any bowel movement. Has not passed gas yet. She's been afebrile. CBC 13 hemoglobin 12.9 sodium 142 potassium 5.0 BUN 17.7 creatinine 0.8, calcium 9.1 phosphorus 4.1 magnesium 2.0. Patient's heart rate has been running in the 40s to 50s, she has been asymptomatic. Atenolol was held. The impression and plan of care has been dictated as directed. Dr. Rendon I performed a history and examination of this patient, discussed the same with the dictator. I agree with the dictator's note ,documented as a scribe. Any additional findings or plans will be noted. Procedures: Procedures performed: 1. Robotic-assisted da Margie Xi laparoscopic sleeve gastrectomy with 40-Togolese bougie, 3 port technique 2. Robotic-assisted da Margie Xi laparoscopic is of adhesions over 30 minutes 3. Intraoperative esophagogastroduodenoscopy ANESTHESIA: Gen. local anesthetic ESTIMATED BLOOD LOSS: 5 mL SPECIMENS REMOVED: Sleeve gastrectomy COMPLICATIONS: None. FINDINGS: 1. Negative intraoperative esophagogastrojejunoscopy leak test. 2. No hepatomegaly and no large hiatus hernia. 3. Total of 6 staplers used including 3 - 60 mm green robot tito and 3 - 60 mm blue robot loads used to create the gastric sleeve. 4. Sleeve gastrectomy, 19 cm x 5 cm 5. Posterior gastric prolapse due to prior adjustable gastric band procedure 6. Severe intra-abdominal pelvic adhesions 7. Moderate to severe perigastric adhesions due to prior adjustable gastric band Patient Condition at Discharge: Good Plan - Discharge Summary Discharge Rx Participant: Yes New Discharge Prescriptions: No Action lisinopriL 40 mg PO DAILY Multivitamins, Thera [Multivitamin (formulary)] 1 tab PO DAILY Diphenox-Atrop 2.5-0.025 mg [Lomotil] 1 - 2 tab PO DAILY PRN PRN Reason: diarhea Cholecalciferol [Vitamin D3 (25 Mcg = 1000 Iu)] 1,000 unit PO DAILY Atorvastatin [Lipitor] 20 mg PO DAILY Atenolol [Tenormin] 50 mg PO DAILY Zinc 50 mg PO DAILY Biotin 5 mg PO DAILY FLUoxetine HCL [PROzac] 10 mg PO DAILY Omeprazole [PriLOSEC] 40 mg PO DAILY #14 cap Discharge Medication List Atenolol [Tenormin] 50 mg PO DAILY 04/08/20 [History] Atorvastatin [Lipitor] 20 mg PO DAILY 04/08/20 [History] Biotin 5 mg PO DAILY 04/08/20 [History] Cholecalciferol [Vitamin D3 (25 Mcg = 1000 Iu)] 1,000 unit PO DAILY 04/08/20 [History] Diphenox-Atrop 2.5-0.025 mg [Lomotil] 1 - 2 tab PO DAILY PRN 04/08/20 [History] Multivitamins, Thera [Multivitamin (formulary)] 1 tab PO DAILY 04/08/20 [Histor y] Zinc 50 mg PO DAILY 04/08/20 [History] lisinopriL 40 mg PO DAILY 04/08/20 [History] FLUoxetine HCL [PROzac] 10 mg PO DAILY 08/04/20 [History] Omeprazole [PriLOSEC] 40 mg PO DAILY #14 cap 08/30/20 [Rx] Follow up Appointment(s)/Referral(s): Sherrie Rendon MD [STAFF PHYSICIAN] - 02/22/21 Sue Montana NPC [Primary Care Provider] - 3 Days Patient Instructions/Handouts: Nutrition after Bariatric Surgery (DC), Laparoscopic Sleeve Gastrectomy (DC) Activity/Diet/Wound Care/Special Instructions: Bariatric clear liquid diet No heavy lifting greater than 10 pounds for at least 2 weeks and until cleared by surgeon May shower with soap and water. No tub baths or soaking 2 weeks and until cleared by surgeon Follow-up bariatric center 1 week No carbonated beverages or straws Open, cut, or crush all pills smaller than it TicTac. Discharge Disposition: HOME SELF-CARE
[2021-02-15 13:54] VITALS: BP 95/58; PULSE 71; TEMP 97.4
[2021-02-16] MEDS ORDERED: bisacodyL 5 MG TABLET.DR PO PRN (08:00)
== END 2021-02-15 17:39 | disposition home or self-care (01) | DRG 621 ==
LOC: 2ORMAIN 02-14 09:32 → 4SSUR 02-14 16:04
PROVIDERS: ADMIT Surgery Plastic and Reconstructive Surgery; ATTEND Surgery Plastic and Reconstructive Surgery
PROC: 0DNW4ZZ Release Peritoneum, Percutaneous Endoscopic Approach (ICD-10-PCS; 2021-02-14)
PROC: 0DJ08ZZ Inspection of Upper Intestinal Tract, Via Natural or Artificial Opening Endoscopic (ICD-10-PCS; 2021-02-14)
PROC: 8E0W4CZ Robotic Assisted Procedure of Trunk Region, Percutaneous Endoscopic Approach (ICD-10-PCS; 2021-02-14)
PROC: 0DB64Z3 Excision of Stomach, Percutaneous Endoscopic Approach, Vertical (ICD-10-PCS; principal; 2021-02-14 11:15)
DX: E66.01 Morbid (severe) obesity due to excess calories (principal); E21.3 Hyperparathyroidism, unspecified; E78.5 Hyperlipidemia, unspecified; I10 Essential (primary) hypertension; K44.9 Diaphragmatic hernia without obstruction or gangrene; Z20.822 Contact with and (suspected) exposure to COVID-19; I11.9 Hypertensive heart disease without heart failure; K52.9 Noninfective gastroenteritis and colitis, unspecified; M16.0 Bilateral primary osteoarthritis of hip; K66.0 Peritoneal adhesions (postprocedural) (postinfection); Z68.42 Body mass index [BMI] 45.0-49.9, adult; F32.A Depression, unspecified; G62.9 Polyneuropathy, unspecified; K80.20 Calculus of gallbladder without cholecystitis without obstruction; Z79.899 Other long term (current) drug therapy; Z85.048 Personal history of other malignant neoplasm of rectum, rectosigmoid junction, and anus; Z87.891 Personal history of nicotine dependence; Z90.49 Acquired absence of other specified parts of digestive tract; Z90.710 Acquired absence of both cervix and uterus; Z90.721 Acquired absence of ovaries, unilateral; Z93.2 Ileostomy status; Z87.19 Personal history of other diseases of the digestive system; Z98.51 Tubal ligation status
CPT/HCPCS: 74240; 80051; 82310; 82565; 83735; 84100; 84520; 85025; 86850; 86900; 86901; 88307; 94640; 94760; 94762

== ENCOUNTER → 2021-02-02 | Outpatient (CLI) | payer MEDICARE ==
[2021-02-02 09:00] LABS: Basophils # (A) 0.1 k/uL (0-0.2); Basophils % (A) 1 %; Eosinophils # (A) 0.2 k/uL (0-0.7); Eosinophils % (A) 2 %; HCT 45.3 % (34.0-46.0); HGB 14.3 gm/dL (11.4-16.0); Lymphocytes # (A) 1.4 k/uL (1.0-4.8); Lymphocytes % (A) 16 %; MCH 30.6 pg (25.0-35.0); MCHC 31.6 g/dL (31.0-37.0); MCV 97.1 fL (80.0-100.0); Mean Platelet Volume 7.6; Monocytes # (A) 0.7 k/uL (0-1.0); Monocytes % (A) 7 %; Neutrophils # (A) 6.4 k/uL (1.3-7.7); Neutrophils % (A) 72 %; Platelet Count 351 k/uL (150-450); RBC 4.67 m/uL (3.80-5.40); RDW 13.1 % (11.5-15.5); WBC 8.8 k/uL (3.8-10.6)
[2021-02-02 09:57] LABS: ALT 28 U/L (4-34); AST 36 U/L (14-36); African American GFR (CKD) >90 (>60 ml/min/1.73 sqM); Alkaline Phosphatase 108 U/L (38-126); Anion Gap 8 mmol/L; Blood Urea Nitrogen 18 mg/dL (7-17); Carbon Dioxide 28 mmol/L (22-30); Chloride 104 mmol/L (98-107); Glucose 86 mg/dL (74-99); Non-African American GFR(CKD) >90 (>60 ml/min/1.73 sqM); Potassium 4.7 mmol/L (3.5-5.1); Sodium 140 mmol/L (137-145); Total Bilirubin 0.5 mg/dL (0.2-1.3); Total Protein 6.9 g/dL (6.3-8.2)
== END | disposition home or self-care (01) ==
LOC: LABPAT 07:42
PROVIDERS: ATTEND Surgery Plastic and Reconstructive Surgery
DX: Z01.812 Encounter for preprocedural laboratory examination (principal)
CPT/HCPCS: 36415; 80053; 85025

== ENCOUNTER → 2021-02-23 | Outpatient (CLI) | payer MEDICARE ==
[2021-02-23 15:09] VITALS: BP 139/98; PULSE 76; RESP 18; TEMP 98.5; BMI 37.1
--- NOTE | 2021-02-23 15:23 | P.BASOAP ---
Subjective Progress Note Date: 02/23/21 No heartburn. No pain medications. She is taking Omeprazole for pouch protection. Her incision are healing. She has irritable bowel syndrome now resolved. Recommend adjusting diet. She is off her blood pressure medications. Objective - Vital Signs Vital signs: Vital Signs Temp 98.5 F 02/23/21 15:02 Pulse 76 02/23/21 15:02 Resp 18 02/23/21 15:02 BP 139/98 02/23/21 15:02 Pulse Ox Intake & Output 02/22/21 02/23/21 02/23/21 18:59 06:59 18:59 Weight 92.079 kg Assessment/Plan Plan: Date: 02/23/21 Initial Weight: 100.698 kg Initial BMI: 40.6 Current Weight: 92.079 kg Current BMI: 37.1 Type of Surgery: Total Volume in Band: Previous Volume: Volume Removed: Volume Added: Band Size:
== END ==
LOC: BARWHC3 13:45
PROVIDERS: ATTEND Surgery Plastic and Reconstructive Surgery
DX: E66.01 Morbid (severe) obesity due to excess calories (principal); Z71.3 Dietary counseling and surveillance; Z12.11 Encounter for screening for malignant neoplasm of colon; Z68.37 Body mass index [BMI] 37.0-37.9, adult
CPT/HCPCS: 97803; G0463; 99211

== ENCOUNTER → 2021-03-16 | Outpatient (CLI) | payer MEDICARE ==
[2021-03-16 15:23] VITALS: BMI 35.9
--- NOTE | 2021-03-16 15:23 | P.BASOAP ---
Subjective Progress Note Date: 03/16/21 She reports recurrent personal history of kidney infection. She is losing weight well. Recommend urine analysis and culture. She is happy with her weight loss. She is 1 month out. Recommend pyridium for bladder urgency. Urine culture pending. Assessment/Plan Plan: Date: Initial Weight: 100.698 kg Initial BMI: Current Weight: 92.079 kg Current BMI: 37.1 Type of Surgery: Total Volume in Band: Previous Volume: Volume Removed: Volume Added: Band Size:
[2021-03-16 16:33] VITALS: BP 144/95; PULSE 96; RESP 18; TEMP 98.5
[2021-03-16 16:49] LABS: HCT 45.9 % (34.0-46.0); HGB 14.7 gm/dL (11.4-16.0); MCH 31.5 pg (25.0-35.0); MCV 98.5 fL (80.0-100.0); Mean Platelet Volume 8.2; Platelet Count 334 k/uL (150-450); RBC 4.66 m/uL (3.80-5.40); RDW 14.2 % (11.5-15.5); WBC 8.6 k/uL (3.8-10.6)
[2021-03-16 17:12] LABS: Partial Thromboplastin Time 25.9 sec (22.0-30.0); Prothrombin Time 10.6 sec (9.0-12.0)
[2021-03-17 00:10] LABS: % Iron Saturation 25.63 (12.00-45.00); ALT 43 U/L (8-44); AST 37 U/L (13-35); African American GFR (CKD) 89.1 (60.0-200.0); Albumin 4.3 g/dL (3.8-4.9); Alkaline Phosphatase 132 U/L (41-126); BUN/Creat Ratio 9.31 Ratio (12.00-20.00); Blood Urea Nitrogen 7.8 mg/dL (9.0-27.0); Calcium 9.9 mg/dL (8.7-10.3); Chloride 101 mmol/L (96-109); Chol/HDL Ratio 5.59 Ratio; Globulin 2.2 g/dL (1.6-3.3); Glucose 83 mg/dL (70-110); Iron 55 ug/dL (50-170); Non-African American GFR(CKD) 76.8 (60.0-200.0); Phosphorus 3.5 mg/dL (2.4-5.1); Potassium 3.8 mmol/L (3.5-5.5); Prealbumin 19.5 mg/dL (18.0-42.0); Sodium 141 mmol/L (135-145); Total Iron Binding Capacity 214 ug/dL (228-460); Total Protein 6.5 g/dL (6.2-8.2)
[2021-03-17 12:57] LABS: Zinc, Serum 84 ug/dL (60-130)
[2021-03-19 02:40] LABS: Vitamin A 34 ug/dL (38-106)
[2021-03-19 02:48] LABS: Vit B1(Thiamine) 66 ug/L (38-122)
== END ==
LOC: BARWHC3 13:26
PROVIDERS: ATTEND Surgery Plastic and Reconstructive Surgery
DX: E66.01 Morbid (severe) obesity due to excess calories (principal); D50.8 Other iron deficiency anemias; E44.0 Moderate protein-calorie malnutrition; E55.9 Vitamin D deficiency, unspecified; K74.1 Hepatic sclerosis; N19 Unspecified kidney failure; K50.90 Crohn's disease, unspecified, without complications; Z68.35 Body mass index [BMI] 35.0-35.9, adult
CPT/HCPCS: 84255; 84134; 84425; 80061; 80053; 82607; 82728; 82525; 82746; 83540; 83550; 83735; 84100; 84443; 84590; 84630; 85027; 85610; 85730; 82306; 83970; 87086; 83036; 97803; G0463; 87077; 87186; 99211

== ENCOUNTER → 2021-05-11 | Outpatient (CLI) | payer MEDICARE ==
[2021-05-11 14:58] VITALS: BP 163/95; PULSE 97; RESP 16; TEMP 98
--- NOTE | 2021-05-11 15:00 | P.BASOAP ---
Subjective Progress Note Date: 05/11/21 DATE OF SERVICE: 05/11/2021 CHIEF COMPLAINT: Status post sleeve gastrectomy HISTORY OF PRESENT ILLNESS: Quiana Samuels is a 60-year-old female status post sleeve gastrectomy, 02/14/21. She is less than 3 months out. She wants to get down to 140 pounds. No heartburn. She is losing 20 pounds. She has decreased diarrhea. She reports high blood pressure today. She is happy with her bowel movements. At height of 5 feet 2 inches, her ideal body weight is 135 pounds. Her highest weight is 250 pounds, BMI 45.8. She comes in 189 pounds from 196 pounds, 2 months ago. She has lost 7 pounds in 2 months. Her body mass index is down to 34.6. Her lifetime percent excess weight loss is 53%. Lifetime weight loss of 61 pounds. She is 54 pounds overweight. PHYSICAL EXAM: VITAL SIGNS: Height 5 foot 2 inches, weight 189 pounds. BMI 34.6 Vital Signs Temp 98 F 05/11/21 14:56 Pulse 97 05/11/21 14:56 Resp 16 05/11/21 14:56 BP 163/95 05/11/21 14:56 Pulse Ox GENERAL: Well-developed in no acute distress. HEENT: No scleral icterus. Extraocular movements grossly intact. Hears conversational speech. No nasal drainage. NECK: Supple without lymphadenopathy. CHEST: Nonlabored respirations with equal bilateral excursions. CARDIOVASCULAR: Regular rate and regular rhythm. Distal 2+ pulses. ABDOMEN: Obese, soft, nontender, nondistended. No infection. No hernia. MUSCULOSKELETAL: No clubbing, cyanosis. NEURO: No focal or lateralizing signs. Cranial nerves 2 through 12 grossly within normal limits. PSYCH: Appropriate affect. Alert and oriented to person, place and time. SKIN: Good skin turgor. Well perfused. MICRO: E.coli LABS: LFTs elevated. Triglycerides and cholesterol is elevated. Vitamin A low. PTH elevated. ASSESSMENT: 1. Morbid obesity due to excess calories 2. Body mass index of 45.8, initial to 34.6 3. Osteoarthritis of the hips. 4. History of colorectal cancer 5. Hypertensive heart disease 6. Hyperlipidemia 7. Neuropathy 8. Depressive disorder 9. Family history morbid obesity 10. Chronic diarrhea 11. Hiatal hernia 12. Hyperparathyroidism 13. Gallbladder polyp 14. Hepatomegaly 15. Status post sleeve gastrectomy 16. Vitamin A deficiency 17. Secondary hyperparathyroidism PLAN: 1. She is due for colonoscopy in June. 2. Recommend bariatric labs. 3. Monitor PTH levels Objective - Vital Signs Vital signs: Vital Signs Temp 98 F 05/11/21 14:56 Pulse 97 05/11/21 14:56 Resp 16 05/11/21 14:56 BP 163/95 05/11/21 14:56 Pulse Ox Intake & Output 05/10/21 05/11/21 05/11/21 18:59 06:59 18:59 Weight 85.729 kg - Labs CBC & Chem 7: 05/11/21 15:20 05/11/21 15:20 Assessment/Plan Plan: Date: 05/11/21 Initial Weight: 100.698 kg Initial BMI: Current Weight: 85.729 kg Current BMI: Type of Surgery: Total Volume in Band: Previous Volume: Volume Removed: Volume Added: Band Size:
[2021-05-11 15:25] VITALS: BMI 34.5
[2021-05-11 16:05] LABS: Partial Thromboplastin Time 26.7 sec (22.0-30.0); Prothrombin Time 10.9 sec (9.0-12.0)
[2021-05-11 19:21] LABS: HCT 45.8 % (37.2-46.3); HGB 14.4 g/dL (12.0-15.0); MCH 30.7 pg (27.0-32.0); MCHC 31.4 g/dL (32.0-37.0); MCV 97.7 fL (80.0-97.0); Mean Platelet Volume 11.2 fL (9.5-12.2); NRBC Per 100 WBC 0 /100 WBCS (0.0-0.0); Platelet Count 316 X 10*3/uL (140-440); RBC 4.69 X 10*6/uL (4.10-5.20); RDW 14.2 % (11.5-14.5)
[2021-05-11 21:45] LABS: Chol/HDL Ratio 4.94 Ratio; LDL Cholesterol,Calculated 141.4 mg/dL (0.0-131.0); Prealbumin 20.6 mg/dL (18.0-42.0)
[2021-05-12 01:31] LABS: ALT 27 U/L (8-44); AST 26 U/L (13-35); African American GFR (CKD) 95.1 (60.0-200.0); Albumin 4.5 g/dL (3.8-4.9); Albumin/Globulin Ratio 1.96 (1.60-3.17); Alkaline Phosphatase 144 U/L (41-126); BUN/Creat Ratio 12.52 Ratio (12.00-20.00); Blood Urea Nitrogen 9.9 mg/dL (9.0-27.0); Calcium 10.1 mg/dL (8.7-10.3); Carbon Dioxide 23.8 mmol/L (20.0-27.5); Chloride 103 mmol/L (96-109); Ferritin 82.9 ng/mL (10.0-291.0); Globulin 2.3 g/dL (1.6-3.3); Glucose 87 mg/dL (70-110); Iron 58 ug/dL (50-170); Magnesium 2.3 mg/dL (1.5-2.4); Phosphorus 3.4 mg/dL (2.4-5.1); Potassium 4.2 mmol/L (3.5-5.5); Sodium 143 mmol/L (135-145); Total Iron Binding Capacity 256 ug/dL (228-460); Total Protein 6.9 g/dL (6.2-8.2)
[2021-05-12 13:05] LABS: Zinc, Serum 82 ug/dL (60-130)
[2021-05-13 09:12] LABS: Vitamin A 40 ug/dL (38-106)
[2021-05-14 12:59] LABS: Selenium 142 mcg/L (63-160)
[2021-05-18 10:56] LABS: Vit B1(Thiamine) 76 ug/L (38-122)
== END ==
LOC: BARWHC3 13:45
PROVIDERS: ATTEND Surgery Plastic and Reconstructive Surgery
DX: E66.01 Morbid (severe) obesity due to excess calories (principal); M16.0 Bilateral primary osteoarthritis of hip; I11.9 Hypertensive heart disease without heart failure; Z86.39 Personal history of other endocrine, nutritional and metabolic disease; Z85.038 Personal history of other malignant neoplasm of large intestine; Z68.34 Body mass index [BMI] 34.0-34.9, adult; E78.5 Hyperlipidemia, unspecified; G62.9 Polyneuropathy, unspecified; F32.A Depression, unspecified; K52.9 Noninfective gastroenteritis and colitis, unspecified; K44.9 Diaphragmatic hernia without obstruction or gangrene; E21.3 Hyperparathyroidism, unspecified; K82.4 Cholesterolosis of gallbladder; R16.0 Hepatomegaly, not elsewhere classified; Z98.84 Bariatric surgery status; E50.9 Vitamin A deficiency, unspecified; E21.1 Secondary hyperparathyroidism, not elsewhere classified
CPT/HCPCS: 84255; 84134; 84425; 80061; 80053; 82607; 82728; 82525; 82746; 83540; 83550; 83735; 84100; 84443; 84590; 84630; 85027; 85610; 85730; 82306; 83970; 83036; 97803; G0463; 99211

== ENCOUNTER 2021-09-07 07:39 | Day surgery (SDC) | payer MEDICARE ==
[2021-09-05 09:55] VITALS: BMI 33.3
--- NOTE | 2021-09-07 06:13 | P.GSHP ---
History of Present Illness H&P Date: 09/07/21 CHIEF COMPLAINT: Colon screen HISTORY OF PRESENT ILLNESS: The patient is a 60-year-old female who presents for colon screen. Lower endoscopy was offered for further evaluation and management. PAST MEDICAL HISTORY: Please see list. PAST SURGICAL HISTORY: Please see list. MEDICATIONS: Please see list. ALLERGIES: Please see list. SOCIAL HISTORY: No illicit drug use FAMILY HISTORY: No reports of Crohn disease or ulcerative colitis. REVIEW OF ORGAN SYSTEMS: CONSTITUTIONAL: No reports of fevers or chills. PHYSICAL EXAM: VITAL SIGNS: Stable GENERAL: Well-developed pleasant in no acute distress. HEENT: No scleral icterus. Extraocular movements grossly intact. Moist buccal mucosa. NECK: Supple without lymphadenopathy. CHEST: Unlabored respirations. Equal bilateral excursions. CARDIOVASCULAR: Regular rate and rhythm. Distal 2+ pulses. ABDOMEN: Soft, nontender, nondistended. MUSCULOSKELETAL: No clubbing, cyanosis, or edema. ASSESSMENT: 1. Colon screen. PLAN: 1. Recommend proceeding with a lower endoscopy Past Medical History Past Medical History: Cancer, GERD/Reflux, Hyperlipidemia, Hypertension Additional Past Medical History / Comment(s): colorectal cancer(radiation and chemo 1998), diarrhea, urinary incontinence, History of Any Multi-Drug Resistant Organisms: None Reported Past Surgical History: Bariatric Surgery, Bowel Resection, Hysterectomy, Tonsillectomy, Tubal Ligation Additional Past Surgical History / Comment(s): ileosotomy and revision. lap band 2004. lap band removed 2018. left oophorectomy and salpingectomy. 02/14/21 - gastric sleeve (mick). COLONOSCOPY, EGD Past Anesthesia/Blood Transfusion Reactions: No Reported Reaction Smoking Status: Former smoker - Past Family History Mother Family Medical History: Cancer Additional Family Medical History / Comment(s): skin Medications and Allergies Home Medications Medication Instructions Recorded Confirmed Type Omeprazole [PriLOSEC] 40 mg PO DAILY #30 cap 02/15/21 09/05/21 Rx Atorvastatin [Lipitor] 40 mg PO DAILY 09/05/21 09/05/21 History lisinopriL 40 mg PO DAILY 09/05/21 09/05/21 History Allergies Allergy/AdvReac Type Severity Reaction Status Date / Time No Known Allergies Allergy Verified 09/05/21 09:47
[2021-09-07 08:19] VITALS: TEMP 98
[2021-09-07] MEDS ORDERED: LACTATED RINGERS 1,000 ML IV ONE (08:24)
[2021-09-07] MEDS ORDERED: LIDOCAINE 2% INJ 20 MG/ML (2 ML VIAL) ONE (08:32)
[2021-09-07] MEDS ORDERED: PROPOFOL 10 MG/ML 20 ML VIAL IV ONE (08:32)
[2021-09-07] MEDS ORDERED: IV FLUID CONTINUATION 200 ML IV ONE (09:06)
[2021-09-07 09:09] VITALS: RESP 16
--- NOTE | 2021-09-07 09:18 | P.PCN ---
Date of Procedure: 09/07/21 Description of Procedure: PREOPERATIVE DIAGNOSIS: Personal history colorectal cancer POSTOPERATIVE DIAGNOSIS: Poor prep OPERATION: Colonoscopy to the transverse colon SURGEON: Sherrie Rendon MD. ANESTHESIA: MAC. INDICATIONS: The patient is a 60-year-old female who presents for colon cancer surveillance status post colectomy 3 years ago, 2019. Her last colonoscopy was over one year ago. Benefits and risks were described and informed consent was obtained. DESCRIPTION OF PROCEDURE: The patient had undergone MiraLAX prep. She had been brought into the operating room and laid in the left lateral decubitus position. After adequate intravenous sedation, the rectum was examined with 2% lidocaine jelly. No external hemorrhoids were encountered. The rectal tone was tight. No lesions were palpated in the rectal vault. An Olympus colonoscope was advanced along the rectum with moderate liquid stools requiring persistent suctioning. Effluent from colon continued to clog the scope despite advancement to the distal transverse colon at 70 cm from the rectum. Multiple attempts performed to decl og scope and advance scope. Despite multiple maneuvers, no further advancement of scope due to extremely poor prep. The procedure was discontinued. The colon was desufflated. The patient had tolerated the procedure well. FINDINGS: [place]ch[place] preparation quality scale 4 (1-5) No external prolapsed hemorrhoids. Internal hemorrhoids, grade 1. Scope advanced to transverse colon at 70 cm. RECOMMENDATIONS: Due to personal history of malignant colon cancer, repeat colonoscopy soon as available within 1-3 months Start MiraLAX daily Plan - Discharge Summary Discharge Rx Participant: No New Discharge Prescriptions: New Polyethylene Glycol 3350 [Miralax] 17 gm PO DAILY #527 gm Continue Omeprazole [PriLOSEC] 40 mg PO DAILY #30 cap Atorvastatin [Lipitor] 40 mg PO DAILY lisinopriL 40 mg PO DAILY Discharge Medication List Omeprazole [PriLOSEC] 40 mg PO DAILY #30 cap 02/15/21 [Rx] Atorvastatin [Lipitor] 40 mg PO DAILY 09/05/21 [History] lisinopriL 40 mg PO DAILY 09/05/21 [History] Polyethylene Glycol 3350 [Miralax] 17 gm PO DAILY #527 gm 09/07/21 [Rx] Follow up Appointment(s)/Referral(s): Sherrie Rendon MD [STAFF PHYSICIAN] - 09/13/21 Patient Instructions/Handouts: Colonoscopy (GEN), *Surgery [facility] - (Anesthesia) Endoscopy Discharge Instructions Activity/Diet/Wound Care/Special Instructions: Repeat lower endoscopy in 3 months due to poor prep. 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 Discharge Disposition: HOME SELF-CARE
[2021-09-07 09:37] VITALS: BP 149/88; PULSE 73
== END 2021-09-07 10:07 | disposition home or self-care (01) ==
LOC: ORWHC2ENDO 07:39
PROVIDERS: ATTEND Surgery Plastic and Reconstructive Surgery
DX: Z85.038 Personal history of other malignant neoplasm of large intestine (principal); K21.9 Gastro-esophageal reflux disease without esophagitis; E78.5 Hyperlipidemia, unspecified; I10 Essential (primary) hypertension; Z98.84 Bariatric surgery status; Z90.710 Acquired absence of both cervix and uterus; Z98.51 Tubal ligation status; Z90.721 Acquired absence of ovaries, unilateral; Z87.891 Personal history of nicotine dependence; Z80.9 Family history of malignant neoplasm, unspecified; Z79.899 Other long term (current) drug therapy
CPT/HCPCS: 45378; J2704; J2001

== ENCOUNTER 2021-10-19 08:32 | Day surgery (SDC) | payer MEDICARE ==
[2021-10-17 12:18] VITALS: BMI 32.7
[2021-10-19 09:07] VITALS: TEMP 97.2
[2021-10-19] MEDS ORDERED: PROPOFOL 10 MG/ML 20 ML VIAL IV ONE (09:40)
--- NOTE | 2021-10-19 09:41 | P.GSHP ---
History of Present Illness H&P Date: 10/19/21 CHIEF COMPLAINT: GERD and colon screen HISTORY OF PRESENT ILLNESS: The patient is a 60-year-old female who presents with gastroesophageal reflux disease and need for colon screen. Upper and lower endoscopy were offered for further evaluation and management. PAST MEDICAL HISTORY: Please see list. PAST SURGICAL HISTORY: Please see list. MEDICATIONS: Please see list. ALLERGIES: Please see list. SOCIAL HISTORY: No illicit drug use FAMILY HISTORY: No reports of Crohn disease or ulcerative colitis. REVIEW OF ORGAN SYSTEMS: CONSTITUTIONAL: No reports of fevers or chills. GI: Denies any blood in stools or constipation. PHYSICAL EXAM: VITAL SIGNS: Stable GENERAL: Well-developed pleasant in no acute distress. HEENT: No scleral icterus. Extraocular movements grossly intact. Moist buccal mucosa. NECK: Supple without lymphadenopathy. CHEST: Unlabored respirations. Equal bilateral excursions. CARDIOVASCULAR: Regular rate and rhythm. Distal 2+ pulses. ABDOMEN: Soft, nondistended. MUSCULOSKELETAL: No clubbing, cyanosis, or edema. ASSESSMENT: 1. Gastroesophageal reflux disease 2. Colon screen. PLAN: 1. Recommend proceeding with an upper and lower endoscopy Past Medical History Past Medical History: Cancer, GERD/Reflux, Hyperlipidemia, Hypertension Additional Past Medical History / Comment(s): colorectal cancer(radiation and chemo 1998), diarrhea, urinary incontinence, History of Any Multi-Drug Resistant Organisms: None Reported Past Surgical History: Bariatric Surgery, Bowel Resection, Hysterectomy, Tonsillectomy, Tubal Ligation Additional Past Surgical History / Comment(s): ileosotomy and revision. lap band 2004. lap band removed 2018. left oophorectomy and salpingectomy. 02/14/21 - gastric sleeve (mick). COLONOSCOPY, EGD Past Anesthesia/Blood Transfusion Reactions: No Reported Reaction Smoking Status: Former smoker - Past Family History Mother Family Medical History: Cancer Additional Family Medical History / Comment(s): skin Medications and Allergies Home Medications Medication Instructions Recorded Confirmed Type Omeprazole [PriLOSEC] 40 mg PO DAILY #30 cap 02/15/21 10/19/21 Rx Atorvastatin [Lipitor] 40 mg PO DAILY 09/05/21 10/19/21 History lisinopriL 40 mg PO DAILY 09/05/21 10/19/21 History polyethylene glycoL 3350 [Miralax] 17 gm PO DAILY #527 gm 09/07/21 10/19/21 Rx Allergies Allergy/AdvReac Type Severity Reaction Status Date / Time No Known Allergies Allergy Verified 10/19/21 09:07 Surgical - Exam Vital Signs Temp Pulse Resp BP Pulse Ox 97.2 F L 77 14 151/91 99 10/19/21 09:01 10/19/21 09:01 10/19/21 09:01 10/19/21 09:01 10/19/21 09:01
[2021-10-19 10:39] VITALS: BP 133/97; PULSE 69; RESP 16
--- NOTE | 2021-10-19 10:56 | P.PCN ---
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 ANESTHESIA: MAC. INDICATIONS: The patient is a 60-year-old female with history of sigmoid colectomy low anterior resection for colon cancer including an ileocolectomy Benefits and risks were described and informed consent was obtained. DESCRIPTION OF PROCEDURE: The patient had undergone Sutab prep including MiraLAX and prolonged low residue diet. She had been brought into the operating room and laid in the left lateral decubitus position. After adequate intravenous sedation, the rectum was examined with 2% lidocaine jelly. External hemorrhoids were encountered. The rectal tone was loose. No lesions were palpated in the rectal vault. An Olympus colonoscope was advanced where stricture of the anastomosis at 15-20 cm from the anal verge was identified requiring pediatric colonoscope. The scope was then exchanged for a pediatric colonoscope. The scope was passed beyond the anastomosis to the ileocolic anastomosis which was widely patent. No evidence of polyps were identified. The prep was fair. The colon was desufflated. The patient had tolerated the procedure well. Withdrawal time was over 6 minutes. 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 No arteriovenous malformations. No adenomatous polyps. No focal colitis. RECOMMENDATIONS: 1. May benefit from colonic dilation of anastomosis. 2. Repeat colonoscopy in one year, 2022 for surveillance of colon cancer 3. Recommend low residue diet with 3 day colonoscopy prep for future colonoscopies Plan - Discharge Summary Discharge Rx Participant: No New Discharge Prescriptions: Continue Omeprazole [PriLOSEC] 40 mg PO DAILY #30 cap Atorvastatin [Lipitor] 40 mg PO DAILY lisinopriL 40 mg PO DAILY polyethylene glycoL 3350 [Miralax] 17 gm PO DAILY #527 gm Discharge Medication List Omeprazole [PriLOSEC] 40 mg PO DAILY #30 cap 02/15/21 [Rx] Atorvastatin [Lipitor] 40 mg PO DAILY 09/05/21 [History] lisinopriL 40 mg PO DAILY 09/05/21 [History] polyethylene glycoL 3350 [Miralax] 17 gm PO DAILY #527 gm 09/07/21 [Rx] Follow up Appointment(s)/Referral(s): Sherrie Rendon MD [STAFF PHYSICIAN] - As Needed Patient Instructions/Handouts: Jessica Esophagus (GEN), *Surgery [facility] - (Anesthesia) Endoscopy Discharge Instructions, Colonoscopy (DC) Activity/Diet/Wound Care/Special Instructions: Repeat colonoscopy in one year 2022 for colon cancer surveillance Discharge Disposition: HOME SELF-CARE
--- NOTE | 2021-10-19 11:29 | P.PCN ---
Date of Procedure: 10/19/21 Description of Procedure: PREOPERATIVE DIAGNOSIS: Gastroesophageal reflux disease. History of Jessica's esophagus History of prior adjustable gastric band with conversion to sleeve gastrectomy POSTOPERATIVE DIAGNOSIS: Status post sleeve gastrectomy. Gastroesophageal reflux disease with Jsesica's esophagus OPERATION: Esophagogastroduodenoscopy with cold forceps biopsies along the antrum. SURGEON: Sherrie Rendon MD ANESTHESIA: MAC. INDICATIONS: The patient is a 64-year-old female who presents with Jessica's esophagus and history of gastrointestinal cancer. Benefits and risks of the procedure were described. Informed consent was obtained. DESCRIPTION: The patient was brought into the endoscopy suite and laid in the left lateral decubitus position. An Olympus gastroscope was passed along the posterior oropharynx down to the distal esophagus where the squamocolumnar junction was at 35 centimeters from the incisors. The sleeve reservoir was within normal limits. The first through third portion of the duodenum was examined and unremarkable. The scope was retroflexed along the antrum with minimal retained antrum identified. The stomach was desufflated. The patient tolerated the procedure well. FINDINGS: No acute ulceration found along her sleeve. No corkscrewing sleeve gastrectomy. Squamocolumnar junction at 35 cm from the incisors. Diaphragmatic hiatus at 40 cm. Sleeve reservoir within normal limits. Hiatal hernia 5 cm, fixed. LA grade D erosive esophagitis from 30 cm to 35 cm from the incisors with biopsies obtained No active duodenitis. RECOMMENDATIONS: Repeat upper endoscopy in one year, 2022 Continue omeprazole 40 mg due to Jessica's esophagus
== END 2021-10-19 12:09 | disposition home or self-care (01) ==
LOC: ORWHC2ENDO 08:32
PROVIDERS: ATTEND Surgery Plastic and Reconstructive Surgery
DX: Z12.11 Encounter for screening for malignant neoplasm of colon (principal); K21.00 Gastro-esophageal reflux disease with esophagitis, without bleeding; K44.9 Diaphragmatic hernia without obstruction or gangrene; K22.70 Barrett's esophagus without dysplasia; Z85.038 Personal history of other malignant neoplasm of large intestine; Z98.84 Bariatric surgery status; Z90.49 Acquired absence of other specified parts of digestive tract; K64.8 Other hemorrhoids; I10 Essential (primary) hypertension; E78.5 Hyperlipidemia, unspecified; Z92.21 Personal history of antineoplastic chemotherapy; Z92.3 Personal history of irradiation; Z90.710 Acquired absence of both cervix and uterus; Z79.899 Other long term (current) drug therapy; Z80.8 Family history of malignant neoplasm of other organs or systems; Z98.51 Tubal ligation status; Z87.891 Personal history of nicotine dependence
CPT/HCPCS: 88305; 45378; 43239; J2704

== ENCOUNTER 2023-02-07 08:55 | Day surgery (SDC) | payer MEDICARE ==
--- NOTE | 2023-02-07 08:48 | P.GSHP ---
History of Present Illness H&P Date: 02/07/23 CHIEF COMPLAINT: GERD and colon screen HISTORY OF PRESENT ILLNESS: The patient is a 62-year-old female who presents with gastroesophageal reflux disease and need for colon screen. Upper and lower endoscopy were offered for further evaluation and management. PAST MEDICAL HISTORY: Please see list. PAST SURGICAL HISTORY: Please see list. MEDICATIONS: Please see list. ALLERGIES: Please see list. SOCIAL HISTORY: No illicit drug use FAMILY HISTORY: No reports of Crohn disease or ulcerative colitis. REVIEW OF ORGAN SYSTEMS: CONSTITUTIONAL: No reports of fevers or chills. GI: Denies any blood in stools or constipation. PHYSICAL EXAM: VITAL SIGNS: Stable GENERAL: Well-developed pleasant in no acute distress. HEENT: No scleral icterus. Extraocular movements grossly intact. Moist buccal mucosa. NECK: Supple without lymphadenopathy. CHEST: Unlabored respirations. Equal bilateral excursions. CARDIOVASCULAR: Regular rate and rhythm. Distal 2+ pulses. ABDOMEN: Soft, nondistended. MUSCULOSKELETAL: No clubbing, cyanosis, or edema. ASSESSMENT: 1. Gastroesophageal reflux disease 2. Colon screen. PLAN: 1. Recommend proceeding with an upper and lower endoscopy Past Medical History Past Medical History: Cancer, GERD/Reflux, Hyperlipidemia, Hypertension Additional Past Medical History / Comment(s): colorectal cancer(radiation and chemo 1998), diarrhea, urinary incontinence, History of Any Multi-Drug Resistant Organisms: None Reported Past Surgical History: Bariatric Surgery, Bowel Resection, Hysterectomy, Tonsillectomy, Tubal Ligation Additional Past Surgical History / Comment(s): ileosotomy and revision. lap band 2004. lap band removed 2018. left oophorectomy and salpingectomy. 02/14/21 - gastric sleeve (mick). COLONOSCOPY, EGD Past Anesthesia/Blood Transfusion Reactions: No Reported Reaction Additional Past Anesthesia/Blood Transfusion Reaction / Comment(s): Hypotensive in PACU per patient. Smoking Status: Former smoker - Past Family History Mother Family Medical History: Cancer Additional Family Medical History / Comment(s): skin Medications and Allergies Home Medications Medication Instructions Recorded Confirmed Type Atorvastatin [Lipitor] 20 mg PO QAM 09/05/21 02/06/23 History lisinopriL 40 mg PO QAM 09/05/21 02/06/23 History Diphenoxylate HCl/Atropine 1 tab PO DIRECTED PRN 02/06/23 02/06/23 History [Lomotil 2.5-0.025 mg Tablet] Multivit with Calcium,Iron,Min 1 tab PO QAM 02/06/23 02/06/23 History [Women's Multivitamin] Omeprazole [PriLOSEC] 40 mg PO QAM 02/06/23 02/06/23 History atenoloL 25 mg PO QAM 02/06/23 02/06/23 History Allergies Allergy/AdvReac Type Severity Reaction Status Date / Time No Known Allergies Allergy Verified 02/06/23 09:40
[~2023-02-07 08:55] MED LIST changes: -LIDOCAINE 1% (10MG/ML) FOR IV START INTRADERMA PRN
[2023-02-07] MEDS ORDERED: LIDOCAINE 1% INJ 10MG/ML (20 ML MDV) ONE (09:42)
[2023-02-07] MEDS ORDERED: PROPOFOL 10 MG/ML 20 ML VIAL IV ONE (09:42)
[2023-02-07 09:44] VITALS: TEMP 97
--- NOTE | 2023-02-07 10:13 | P.PCN ---
Date of Procedure: 02/07/23 Description of Procedure: PREOPERATIVE DIAGNOSIS: Personal history colon cancer Status post chemoradiation Status post sigmoid colectomy POSTOPERATIVE DIAGNOSIS: Personal history colon cancer Status post chemoradiation Status post sigmoid colectomy Anastomotic stricture, colon OPERATION: Colonoscopy to the cecum, ileocecal valve and appendiceal orifice. SURGEON: Sherrie Rendon MD. ANESTHESIA: MAC. INDICATIONS: The patient is a 62-year-old female who presents for colonoscopy surveillance after colectomy and chemoradiation for colon cancer. Last colonoscopy 2020, 3 years ago. Benefits and risks were described and informed consent was obtained. DESCRIPTION OF PROCEDURE: The patient had undergone SUFLAVE, lactulose and 3 day prep. The patient had been brought into the operating room and laid in the left lateral decubitus position. After adequate intravenous sedation, the rectum was examined with 2% lidocaine jelly. No external hemorrhoids were encountered. The rectal tone was within normal limits. No lesions were palpated in the rectal vault. An Olympus colonoscope was advanced until the cecum, ileocecal valve and appendiceal orifice were clearly viewed. The prep was good. No moderate scattered diverticulosis was encountered. No colonic polyps were found. Anastomosis stricture at 15 cm from anal verge. No evidence of focal colitis was found. Retroflexion of the scope demonstrated grade 1 internal hemorrhoids without active bleeding or inflammation. The colon was desufflated. The patient had tolerated the procedure well. Withdrawal time was over 6 minutes. FINDINGS: Aronchick preparation quality scale 2 (1-5) Internal hemorrhoids, grade 1 No external prolapsed hemorrhoids. No arteriovenous malformations. No adenomatous polyps. No focal colitis. Anastomosis stricture at 15 cm from anal verge. RECOMMENDATIONS: Lower endoscopy in one year, 2023 Plan - Discharge Summary Discharge Rx Participant: No New Discharge Prescriptions: Continue Atorvastatin [Lipitor] 20 mg PO QAM atenoloL 25 mg PO QAM Omeprazole [PriLOSEC] 40 mg PO QAM lisinopriL 40 mg PO QAM Diphenoxylate HCl/Atropine [Lomotil 2.5-0.025 mg Tablet] 1 tab PO DIRECTED PRN PRN Reason: Diarrhea Multivit with Calcium,Iron,Min [Women's Multivitamin] 1 tab PO QAM Discharge Medication List Atorvastatin [Lipitor] 20 mg PO QAM 09/05/21 [History] lisinopriL 40 mg PO QAM 09/05/21 [History] Diphenoxylate HCl/Atropine [Lomotil 2.5-0.025 mg Tablet] 1 tab PO DIRECTED PRN 02/06/23 [History] Multivit with Calcium,Iron,Min [Women's Multivitamin] 1 tab PO QAM 02/06/23 [History] Omeprazole [PriLOSEC] 40 mg PO QAM 02/06/23 [History] atenoloL 25 mg PO QAM 02/06/23 [History] Follow up Appointment(s)/Referral(s): Sherrie Rendon MD [STAFF PHYSICIAN] - As Needed Patient Instructions/Handouts: Colonoscopy (DC), Hiatal Hernia (GEN) Activity/Diet/Wound Care/Special Instructions: Repeat EGD and colonoscopy in 2023 Discharge Disposition: HOME SELF-CARE
--- NOTE | 2023-02-07 10:15 | P.PCN ---
Date of Procedure: 02/07/23 Description of Procedure: PREOPERATIVE DIAGNOSIS: Jessica's esophagus Gastroesophageal reflux disease. Morbid obesity. History of sleep gastrectomy POSTOPERATIVE DIAGNOSIS: Gastroesophageal reflux disease. Morbid obesity. Gastritis. Diaphragmatic hiatal hernia Jessica's esophagus OPERATION: Esophagogastroduodenoscopy with biopsies along antrum and duodenum SURGEON: Sherrie Rendon MD ANESTHESIA: MAC. INDICATIONS: The patient is a 62-year-old female who presents with Jessica's esophagus and reflux disease. Benefits and risks of the procedure were described. Informed consent was obtained. DESCRIPTION: The patient was brought into the endoscopy suite and laid in the left lateral decubitus position. An Olympus gastroscope was passed along the posterior oropharynx down to the distal esophagus where the squamocolumnar junction was encountered at 35 cm from the incisors. The stomach was entered and no bile reflux was found. Additional findings are listed below. Biopsies with cold forceps were obtained of the antrum. The first through third portion of the duodenum was examined. Retroflexion of the scope confirmed adequate size sleeve gastrectomy with minimal rotation. The squamocolumnar junction demonstrated LA grade B erosive esophagitis. The stomach was desufflated. The patient tolerated the procedure well. FINDINGS: Squamocolumnar junction 35 cm from the incisors. Diaphragmatic hiatus at 36 cm. Hiatal hernia, 1 cm Sleeve gastrectomy without moderate dilation and adequate reservoir Hill grade 1 lower esophageal valve. LA grade B erosive esophagitism with biopsies obtained Moderate regression of Jessica's esophagus Biopsies obtained of the duodenum. Chronic gastritis with biopsies obtained. RECOMMENDATIONS: Repeat upper endoscopy in one year, 2023
[2023-02-07 10:36] VITALS: BP 141/72; PULSE 71; RESP 17
== END 2023-02-07 10:43 | disposition home or self-care (01) ==
LOC: ORWHC2ENDO 08:55
PROVIDERS: ATTEND Surgery Plastic and Reconstructive Surgery
DX: Z12.11 Encounter for screening for malignant neoplasm of colon (principal); K29.50 Unspecified chronic gastritis without bleeding; K21.00 Gastro-esophageal reflux disease with esophagitis, without bleeding; K22.70 Barrett's esophagus without dysplasia; E66.01 Morbid (severe) obesity due to excess calories; Z68.35 Body mass index [BMI] 35.0-35.9, adult; K29.70 Gastritis, unspecified, without bleeding; K44.9 Diaphragmatic hernia without obstruction or gangrene; C18.9 Malignant neoplasm of colon, unspecified; Z92.21 Personal history of antineoplastic chemotherapy; Z90.49 Acquired absence of other specified parts of digestive tract; I10 Essential (primary) hypertension; E78.5 Hyperlipidemia, unspecified; Z90.710 Acquired absence of both cervix and uterus; Z98.890 Other specified postprocedural states; Z79.899 Other long term (current) drug therapy
CPT/HCPCS: 43239; J2001; J2704; G0121; 88305

== ENCOUNTER → 2023-03-07 | Outpatient (CLI) | payer MEDICARE ==
[2023-03-07 15:27] VITALS: BP 148/75; PULSE 56; TEMP 98.1; BMI 36.2
--- NOTE | 2023-03-07 15:43 | P.BASOAP ---
Subjective Progress Note Date: 03/07/23 DATE OF SERVICE: 03/07/23 CHIEF COMPLAINT: Status post sleeve gastrectomy HISTORY OF PRESENT ILLNESS: Quiana Samuels is a 62-year-old female status post sleeve gastrectomy 02/14/21. She is 2 years postop. She has personal history of Jessica's esophagus and is status post upper and lower endoscopy. She complains of oily stools. She had recent constipation following her colonoscopy. She is having change in bowel habits without bleeding. She is taking lomotil. "I am pooping alot." She is feeling better. At height of 5 feet 2 inches, her ideal body weight is 135 pounds. Her highest weight is 250 pounds, BMI 45.8. She comes in 198 pounds from 220 pounds, 2 years ago. She has lost 22 pounds in 2 years. Lifetime weight loss of 52 pounds. Lifetime percent excess weight loss 45%. She is 63 pounds overweight. PAST MEDICAL HISTORY: 1. Morbid obesity due to excess calories 2. Body mass index of 45.8, initial 3. Osteoarthritis of the hips. 4. History of colorectal cancer 5. Hypertensive heart disease 6. Hyperlipidemia 7. Neuropathy 8. Depressive disorder PAST SURGICAL HISTORY: 1. Colectomy with ileostomy and reversal 2. Adjustable gastric band with removal, 2018. 3. Tubal ligation 4. Tonsillectomy 5. Hysterectomy HOME MEDICATIONS: Home Medications Medication Instructions Recorded Confirmed Atorvastatin [Lipitor] 20 mg PO QAM 09/05/21 03/07/23 lisinopriL 40 mg PO QAM 09/05/21 03/07/23 Diphenoxylate HCl/Atropine 1 tab PO DIRECTED PRN 02/06/23 03/07/23 [Lomotil 2.5-0.025 mg Tablet] Multivit with Calcium,Iron,Min 1 tab PO QAM 02/06/23 03/07/23 [Women's Multivitamin] Omeprazole [PriLOSEC] 40 mg PO QAM 02/06/23 03/07/23 atenoloL [Tenormin] 25 mg PO DAILY 03/07/23 03/07/23 ALLERGIES: Allergies Allergy/AdvReac Type Severity Reaction Status Date / Time No Known Allergies Allergy Verified 02/07/23 09:13 SOCIAL HISTORY: Past tobacco use. FAMILY HISTORY: No family history of ulcerative colitis disease or Crohn's disease. Family history of morbid obesity. No lupus in the family. No reports of stomach or esophageal cancer. REVIEW OF ORGAN SYSTEMS: CONSTITUTIONAL: At height of 5 feet 2 inches, her ideal body weight is 135 pounds. Her highest weight is 250 pounds, BMI 45.8. She is 87 pounds overweight. HEENT: Denies any active troubles with vision or hearing. Denies troubles with swallowing. ENDOCRINE: Denies diabetes. No hypothyroidism. CARDIOVASCULAR: Denies past reports of palpitations or heart attacks or chest pain. Has hypertensive heart disease. RESPIRATORY: Denies daytime somnolence. Denies asthma. GASTROINTESTINAL: Multiple abdominal surgeries due to colorectal cancer as well as chemotherapy and radiation. Has gastroesophageal reflux disease. Chronic diarrhea with fatty food intolerance. Has hepatomegaly GENITOURINARY: Has urinary incontinence. No recent blood in urine. Has vaginal closure due to radiation. MUSCULOSKELETAL: Has lower back pain and joint pain. Has osteoarthritis of the hips. NEURO: No headaches. No seizure disorders. Has neuropathy. PSYCH: Has depression. No suicidal ideation. RHEUMATOLOGIC: No lupus. No rheumatoid arthritis. HEMATOLOGIC: Denies any abnormal bleeding or bruising. Denies history of DVTs. She reports no prior blood clots. No prior blood thinners. SKIN: No rash. No skin cancer. PHYSICAL EXAM: VITAL SIGNS: Height 5 foot 2 inches, weight 198 pounds. BMI 36.2 Vital Signs Temp 98.1 F 03/07/23 15:00 Pulse 56 L 03/07/23 15:00 Resp BP 148/75 03/07/23 15:00 Pulse Ox FiO2 GENERAL: Well-developed in no acute distress. HEENT: No scleral icterus. Extraocular movements grossly intact. Hears conversational speech. No nasal drainage. NECK: Supple without lymphadenopathy. CHEST: Nonlabored respirations with equal bilateral excursions. CARDIOVASCULAR: Regular rate and regular rhythm. Distal 2+ pulses. ABDOMEN: Obese, soft, nontender, nondistended. MUSCULOSKELETAL: No clubbing, cyanosis. NEURO: No focal or lateralizing signs. Cranial nerves 2 through 12 grossly within normal limits. PSYCH: Appropriate affect. Alert and oriented to person, place and time. SKIN: Good skin turgor. Well perfused. COLON FINDINGS: Aronchick preparation quality scale 2 (1-5) Internal hemorrhoids, grade 1 No external prolapsed hemorrhoids. No arteriovenous malformations. No adenomatous polyps. No focal colitis. Anastomosis stricture at 15 cm from anal verge. EGD FINDINGS: Squamocolumnar junction 35 cm from the incisors. Diaphragmatic hiatus at 36 cm. Hiatal hernia, 1 cm Sleeve gastrectomy without moderate dilation and adequate reservoir Hill grade 1 lower esophageal valve. LA grade B erosive esophagitism with biopsies obtained Moderate regression of Jessica's esophagus Biopsies obtained of the duodenum. Chronic gastritis with biopsies obtained. Final Pathologic Diagnosis A. DUODENUM, BIOPSY: Benign small bowel mucosa with intact villous architecture, negative for histopathologic abnormality. B. GASTRIC ANTRUM, BIOPSY: Minimal chronic gastritis. Helicobacter pylori organisms are not identified on routine H+E sections. C. ESOPHAGUS, BIOPSY: Benign squamoglandular mucosa showing mild chronic esophagitis with rare intramucosal eosinophils consistent with reflux esophagitis. Negative for intestinal metaplasia. ASSESSMENT: 1. Morbid obesity due to excess calories 2. Body mass index of 45.8, initial to 36.2 3. Osteoarthritis of the hips. 4. History of colorectal cancer 5. Hypertensive heart disease 6. Hyperlipidemia 7. Neuropathy 8. Depressive disorder 9. Family history morbid obesity 10. Chronic diarrhea 11. Hiatal hernia 12. Hyperparathyroidism 13. Gallbladder polyp 14. Hepatomegaly 15. Status post sleeve gastrectomy 16. Diaphragmatic hiatal hernia 17. Anastomotic stricture PLAN: 1. Personal history of colon cancer, repeat colonoscopy in 3 years, 2025 2. Continue antacids for gastric esophageal reflux disease 3. Recommend yearly bariatric labs Objective - Vital Signs Vital signs: Vital Signs Temp 98.1 F 03/07/23 15:00 Pulse 56 L 03/07/23 15:00 Resp BP 148/75 03/07/23 15:00 Pulse Ox FiO2 Intake & Output 03/06/23 03/07/23 03/07/23 18:59 06:59 18:59 Weight 89.811 kg Assessment/Plan Plan: Date: 03/07/23 Initial Weight: 100.698 kg Initial BMI: 40.6 Current Weight: 89.811 kg Current BMI: 36.2 Type of Surgery: Total Volume in Band: Previous Volume: Volume Removed: Volume Added: Band Size:
== END ==
LOC: BARWHC3 13:38
PROVIDERS: ATTEND Surgery Plastic and Reconstructive Surgery
DX: E66.01 Morbid (severe) obesity due to excess calories (principal); C18.9 Malignant neoplasm of colon, unspecified; I11.0 Hypertensive heart disease with heart failure; E78.5 Hyperlipidemia, unspecified; F32.A Depression, unspecified; G62.9 Polyneuropathy, unspecified; R19.7 Diarrhea, unspecified; K44.9 Diaphragmatic hernia without obstruction or gangrene; E03.9 Hypothyroidism, unspecified; K82.4 Cholesterolosis of gallbladder; R16.0 Hepatomegaly, not elsewhere classified; Z98.84 Bariatric surgery status; K56.690 Other partial intestinal obstruction; Z79.899 Other long term (current) drug therapy; Z68.42 Body mass index [BMI] 45.0-49.9, adult
CPT/HCPCS: 99211

== ENCOUNTER → 2024-05-21 | Outpatient (CLI) | payer MEDICARE ==
[2024-05-21 12:56] VITALS: BP 134/92; PULSE 66; RESP 16; TEMP 98.5; BMI 37.8
--- NOTE | 2024-05-21 13:49 | P.BASOAP ---
Subjective Progress Note Date: 05/21/24 She needs colon cancer screening. MIssed 1 year. Needs 1 week prep lactulose. Selected suprep for 10 am. EGD for dominguez's. Had weight gain. Has R sdied pain from ileostomy. Needs lysis of adhesions. 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 Objective - Vital Signs Vital signs: Vital Signs Temp 98.5 F 05/21/24 12:50 Pulse 66 05/21/24 12:50 Resp 16 05/21/24 12:50 BP 134/92 05/21/24 12:50 Pulse Ox FiO2 Intake & Output 05/20/24 05/21/24 05/21/24 18:59 06:59 18:59 Weight 93.894 kg Assessment/Plan Plan: Date: 05/21/24 Initial Weight: 100.698 kg Initial BMI: 40.6 Current Weight: 93.894 kg Current BMI: 37.8 Type of Surgery: Total Volume in Band: Previous Volume: Volume Removed: Volume Added: Band Size:
== END ==
LOC: BARWHC3 12:26
PROVIDERS: ATTEND Surgery Plastic and Reconstructive Surgery
DX: E66.01 Morbid (severe) obesity due to excess calories (principal); Z68.37 Body mass index [BMI] 37.0-37.9, adult
CPT/HCPCS: 99211

== ENCOUNTER 2024-06-30 06:56 | Day surgery (SDC) | payer MEDICARE ==
[2024-06-30] MEDS: LACTATED RINGERS 1,000 ML IV SCH (07:21)
[2024-06-30] MEDS: IV FLUID CONTINUATION 1,000 ML IV ONE (07:25)
--- NOTE | 2024-06-30 07:26 | P.GSHP ---
History of Present Illness H&P Date: 06/30/24 CHIEF COMPLAINT: GERD and colon screen HISTORY OF PRESENT ILLNESS: The patient is a 63-year-old female who presents with gastroesophageal reflux disease and need for colon screen. Upper and lower endoscopy were offered for further evaluation and management. PAST MEDICAL HISTORY: Please see list. PAST SURGICAL HISTORY: Please see list. MEDICATIONS: Please see list. ALLERGIES: Please see list. SOCIAL HISTORY: No illicit drug use FAMILY HISTORY: No reports of Crohn disease or ulcerative colitis. REVIEW OF ORGAN SYSTEMS: CONSTITUTIONAL: No reports of fevers or chills. GI: Denies any blood in stools or constipation. PHYSICAL EXAM: VITAL SIGNS: Stable GENERAL: Well-developed pleasant in no acute distress. HEENT: No scleral icterus. Extraocular movements grossly intact. Moist buccal mucosa. NECK: Supple without lymphadenopathy. CHEST: Unlabored respirations. Equal bilateral excursions. CARDIOVASCULAR: Regular rate and rhythm. Distal 2+ pulses. ABDOMEN: Soft, nondistended. MUSCULOSKELETAL: No clubbing, cyanosis, or edema. ASSESSMENT: 1. Gastroesophageal reflux disease 2. Colon screen. PLAN: 1. Recommend proceeding with an upper and lower endoscopy Past Medical History Past Medical History: Cancer, GERD/Reflux, Hyperlipidemia, Hypertension Additional Past Medical History / Comment(s): colorectal cancer(radiation and chemo 1998), diarrhea, urinary incontinence History of Any Multi-Drug Resistant Organisms: None Reported Past Surgical History: Bariatric Surgery, Bowel Resection, Hysterectomy, Tonsillectomy, Tubal Ligation Additional Past Surgical History / Comment(s): ileosotomy and revision. lap band 2004. lap band removed 2018. left oophorectomy and salpingectomy. gastric sleeve 2020. COLONOSCOPY, EGD Past Anesthesia/Blood Transfusion Reactions: No Reported Reaction Additional Past Anesthesia/Blood Transfusion Reaction / Comment(s): Hypotensive in PACU per patient. Smoking Status: Former smoker - Past Family History Mother Family Medical History: Cancer Additional Family Medical History / Comment(s): skin Medications and Allergies Home Medications Medication Instructions Recorded Confirmed Type Atorvastatin [Lipitor] 20 mg PO QAM 09/05/21 06/30/24 History lisinopriL 40 mg PO QAM 09/05/21 06/30/24 History Diphenoxylate HCl/Atropine 1 tab PO DIRECTED PRN 02/06/23 06/30/24 History [Lomotil 2.5-0.025 mg Tablet] Multivit with Calcium,Iron,Min 1 tab PO QAM 02/06/23 06/26/24 History [Women's Multivitamin] Omeprazole [PriLOSEC] 40 mg PO QAM 02/06/23 06/30/24 History Lactulose [Cephulac] 30 ml PO BID #500 ml 05/21/24 06/30/24 Rx Sodium, Potassium,Mag Sulfates 354 ml PO DIRECTED #1 kit 05/21/24 06/30/24 Rx [Suprep Bowel Prep Kit] hydroCHLOROthiazide 12.5 mg PO DAILY 05/21/24 06/30/24 History Allergies Allergy/AdvReac Type Severity Reaction Status Date / Time No Known Allergies Allergy Verified 06/30/24 07:19
[2024-06-30 07:28] VITALS: TEMP 97.2
[2024-06-30] MEDS ORDERED: LIDOCAINE 1% INJ 10MG/ML (20 ML MDV) ONE (07:47)
[2024-06-30] MEDS ORDERED: PROPOFOL 10 MG/ML 20 ML VIAL IV ONE (07:47)
--- NOTE | 2024-06-30 08:02 | P.PCN ---
Date of Procedure: 06/30/24 Description of Procedure: PREOPERATIVE DIAGNOSIS: Jessica's esophagus Status post sleeve gastrectomy. POSTOPERATIVE DIAGNOSIS: Jessica's esophagus Sleeve gastrectomy Chronic superficial gastritis. OPERATION: Esophagogastroduodenoscopy with cold forceps biopsies along the esophagus, duodenum and antrum. SURGEON: Sherrie Rendon MD ANESTHESIA: MAC. INDICATIONS: The patient is a 63-year-old female who presents with Jessica's esophagus and sleeve gastrectomy. Benefits and risks of the procedure were described. Informed consent was obtained. DESCRIPTION: The patient was brought into the endoscopy suite and laid in the left lateral decubitus position. An Olympus gastroscope was passed along the posterior oropharynx down to the distal esophagus where the squamocolumnar junction was at 37 cm from the incisors remarkable for chronic erosive esophagitis, LA grade C without ulceration. Chronic gastritis was found along the antrum with cold biopsies obtained. The first through third portion of the duodenum was examined and biopsied. The stomach was desufflated. The patient tolerated the procedure well. FINDINGS: No acute ulceration found along her sleeve. No corkscrewing sleeve gastrectomy. Squamocolumnar junction at 37 cm from the incisors. Diaphragmatic hiatus at 37 cm. Within normal limits gastric reservoir with prior history of sleeve gastrectomy LA grade C erosive esophagitis No Jessica's esophagus Biopsies obtained of duodenum Chronic gastritis. Biopsies obtained RECOMMENDATIONS: Upper endoscopy as needed.
--- NOTE | 2024-06-30 08:31 | P.PCN ---
Date of Procedure: 06/30/24 Description of Procedure: PREOPERATIVE DIAGNOSIS: History of colon cancer Family history malignant colon polyp History of colectomy POSTOPERATIVE DIAGNOSIS: Colonoscopy screening. OPERATION: Colonoscopy to the cecum, ileocecal valve and appendiceal orifice. SURGEON: Sherrie Rendon MD. ANESTHESIA: MAC. INDICATIONS: The patient is a 63-year-old female who presents with personal history of colon cancer. She is status post colectomy. She presents for colonoscopy surveillance. Benefits and risks were described and informed consent was obtained. DESCRIPTION OF PROCEDURE: The patient had undergone Suprep. The patient had been brought into the operating room and laid in the left lateral decubitus position. After adequate intravenous sedation, the rectum was examined with 2% lidocaine jelly. No external hemorrhoids were encountered. The rectal tone was within normal limits. No lesions were palpated in the rectal vault. An Olympus colonoscope was advanced until the cecum, ileocecal valve and appendiceal orifice were clearly viewed. Low rectal anastomosis was identified with improving diameter for prior anastomotic stricture. The prep was fair. No scattered diverticulosis was encountered. No colonic polyps were found. No evidence of focal colitis was found. Retroflexion of the scope demonstrated grade 2 internal hemorrhoids without active bleeding or inflammation. The colon was desufflated. The patient had tolerated the procedure well. Withdrawal time was over 6 minutes. FINDINGS: Aronchick preparation quality scale 2+ (1-5) Internal hemorrhoids, grade 2 No external prolapsed hemorrhoids. No arteriovenous malformations. No adenomatous polyps. No focal colitis. No large diverticulosis Improved diameter of anastomotic stricture RECOMMENDATIONS: Lower endoscopy in 3 years, 2027 Plan - Discharge Summary Discharge Rx Participant: No New Discharge Prescriptions: Continue Atorvastatin [Lipitor] 20 mg PO QAM Omeprazole [PriLOSEC] 40 mg PO QAM Lactulose [Cephulac] 30 ml PO BID #500 ml Sodium, Potassium,Mag Sulfates [Suprep Bowel Prep Kit] 354 ml PO DIRECTED #1 kit lisinopriL 40 mg PO QAM Diphenoxylate HCl/Atropine [Lomotil 2.5-0.025 mg Tablet] 1 tab PO DIRECTED PRN PRN Reason: Diarrhea Multivit with Calcium,Iron,Min [Women's Multivitamin] 1 tab PO QAM hydroCHLOROthiazide 12.5 mg PO DAILY Discharge Medication List Atorvastatin [Lipitor] 20 mg PO QAM 09/05/21 [History] lisinopriL 40 mg PO QAM 09/05/21 [History] Diphenoxylate HCl/Atropine [Lomotil 2.5-0.025 mg Tablet] 1 tab PO DIRECTED PRN 02/06/23 [History] Multivit with Calcium,Iron,Min [Women's Multivitamin] 1 tab PO QAM 02/06/23 [History] Omeprazole [PriLOSEC] 40 mg PO QAM 02/06/23 [History] Lactulose [Cephulac] 30 ml PO BID #500 ml 05/21/24 [Rx] Sodium, Potassium,Mag Sulfates [Suprep Bowel Prep Kit] 354 ml PO DIRECTED #1 kit 05/21/24 [Rx] hydroCHLOROthiazide 12.5 mg PO DAILY 05/21/24 [History] [facility]Ref[facility] [place] [facility] [place] [facility]16[facility]24 3:00 pm Patient Instructions/Handouts: Jessica Esophagus (DC) Activity/Diet/Wound Care/Special Instructions: Repeat lower endoscopy in 3 years, 2027 Discharge Disposition: HOME SELF-CARE
[2024-06-30 08:57] VITALS: BP 109/66; PULSE 66; RESP 16
== END 2024-06-30 09:01 | disposition home or self-care (01) ==
LOC: ORWHC2ENDO 06:56
PROVIDERS: ATTEND Surgery Plastic and Reconstructive Surgery
DX: Z12.11 Encounter for screening for malignant neoplasm of colon (principal); K64.1 Second degree hemorrhoids; K29.30 Chronic superficial gastritis without bleeding; K22.70 Barrett's esophagus without dysplasia; K21.00 Gastro-esophageal reflux disease with esophagitis, without bleeding; I10 Essential (primary) hypertension; E78.5 Hyperlipidemia, unspecified; Z79.899 Other long term (current) drug therapy; Z87.891 Personal history of nicotine dependence; Z85.048 Personal history of other malignant neoplasm of rectum, rectosigmoid junction, and anus; Z90.49 Acquired absence of other specified parts of digestive tract; Z98.84 Bariatric surgery status; Z80.0 Family history of malignant neoplasm of digestive organs
CPT/HCPCS: 43239; 88305; G0105; J2003; J2704; 45378